=== PATIENT | female | born 1945 | race Caucasian/White ===

== ENCOUNTER → 2018-03-15 | Outpatient (CLI) | payer MEDICARE, BC | LOC: M CLY 10:09 | DX: M16.12 Unilateral primary osteoarthritis, left hip (principal); M25.752 Osteophyte, left hip; M25.552 Pain in left hip | CPT/HCPCS: 73502; G0463 ==

== ENCOUNTER → 2018-11-17 | Outpatient (CLI) | payer MEDICARE, BC ==
[~2018-11-17] MED LIST: CONRAY-43 43% 50ML VIAL (Q9960) As Ordered ONE; LIDOCAINE 1% MDV 20ML VIAL As Ordered ONE; TRIAMCINOLONE ACETONIDE SUSP 40 MG/ML VIAL (J3301) As Ordered ONE
== END ==
LOC: M RADPRO 10:56
PROVIDERS: ATTEND Family Medicine
DX: M25.559 Pain in unspecified hip (principal); Z53.8 Procedure and treatment not carried out for other reasons

== ENCOUNTER → 2019-01-17 | Outpatient (CLI) | payer MEDICARE, BC ==
--- NOTE | 2019-01-18 08:46 | REP ---
Left hip injection The procedure was performed under the direct supervision of Dr. Hester. The benefits and risks including but not limited to pain infection and bleeding and anaphylaxis were explained to the patient and informed consent was obtained. The left femoral neck was localized using fluoroscopic guidance. The skin was prepped and draped in a sterile fashion. 1% lidocaine was used as a local anesthetic. Using fluoroscopic guidance a 22-gauge spinal needle was inserted and advanced to the femoral neck. 0.5 ml of Conray 43 was injected to verify placement. 10 ml of a solution containing 9 ml of 1% Xylocaine and 1 ml of Kenalog 40 mg was injected. The needle was then removed. The patient tolerated the procedure well and there were no immediate complications. Less than six seconds of fluoro time was utilized for this procedure. Reviewed by NOELLE Singletary 01/17/2019 05:22 P Electronically Signed by Broderick Hester MD 01/18/2019 08:37 A
== END ==
LOC: M RADPRO 08:56
PROVIDERS: ATTEND Family Medicine
DX: M25.552 Pain in left hip (principal)
CPT/HCPCS: 20610; 77002; J3301; Q9960

== ENCOUNTER → 2019-12-02 | Outpatient (REF) | payer MEDICARE, BC ==
[2019-12-02 12:13] LABS: BLOOD UREA NITROGEN 12 MG/DL (7-18); CREATININE FOR GFR 0.69 MG/DL (0.55-1.30); GLUCOSE, FASTING 113 MG/DL (70-100)
[2019-12-02 12:14] LABS: CALCIUM LEVEL 9.1 MG/DL (8.8-10.2); CARBON DIOXIDE LEVEL 28 MEQ/L (21-32); CHLORIDE LEVEL 106 MEQ/L (98-107); GLOMERULAR FILTRATION RATE > 60.0 (>39); POTASSIUM SERUM 4.3 MEQ/L (3.5-5.1); SODIUM LEVEL 140 MEQ/L (136-145)
== END ==
LOC: M PLALAB 08:06
PROVIDERS: ATTEND Surgery
DX: C50.912 Malignant neoplasm of unspecified site of left female breast (principal)

== ENCOUNTER → 2019-12-09 | Outpatient (CLI) | payer MEDICARE, BC ==
[~2019-12-09] MED LIST changes: +ACET1TAB55 PO; +ANAS1TAB2 PO; -CONRAY-43 43% 50ML VIAL (Q9960) As Ordered ONE; +DULO1CAP6 PO; +ENOX80IN3 SC; +FOLI0.4T5 PO; +GABA600T4 PO; +HYDR-3719 PO; +HYDR-4517 PO; +IRON65TA2 PO; +JANT5TAB PO; -LIDOCAINE 1% MDV 20ML VIAL As Ordered ONE; +LOVE0.4I2 SC; +METO1TAB32 PO; +NIFE15CA PO; +OXYB5TAB10 PO; +PROAAER10 INH; +PROHANCE 279.3MG/ML 15ML VIAL As Ordered ONE; +SYMB16INH INH; +TIZA2CAP PO; +TRAM50TA2 PO; -TRIAMCINOLONE ACETONIDE SUSP 40 MG/ML VIAL (J3301) As Ordered ONE; +VITA500T40 PO; +WARF-58 PO; +WARF-60 PO
--- NOTE | 2019-12-13 22:57 | REP ---
BILATERAL BREAST MRI STUDY WITHOUT AND WITH IV GADOLINIUM: HISTORY: Malignant neoplasm of the female left breast. Patient is status post right mastectomy for malignancy diagnosed in 2011. Comparison mammography 11/27/2017. Comparison left breast mammography 11/08/2019 and 10/07/2019. Comparison sonography 10/07/2019. Ultrasound-guided needle biopsy 11/08/2019. TECHNIQUE: 3 Tressa MRI imaging was performed with a dedicated breast coil. Axial, coronal, and sagittal T1- and T2-weighted scans were obtained with and without fat saturation in the usual fashion. The study includes dynamically acquired post gadolinium enhanced imaging subtraction imaging. Maximal intensity projection and multiplanar reformation imaging is included as well. The study was interpreted with the aid of [employer], an FDA-approved computer-aided detection (CAD) software program, on a dedicated breast MRI work station. The gadolinium enhancement dose is 11 mL of intravenous ProHance. FINDINGS: Patient status post right mastectomy. There is metallic field susceptibility artifact in and about the sternum from sternotomy wires. There is fibroglandular tissue in the left breast. There is mild background parenchymal enhancement. No axillary adenopathy is appreciated. No evidence of cystic breast disease. There is a metallic field susceptibility artifact along the posterior margin of a spiculated mass-like lesion in the left breast superiorly and medially, 11 mm in diameter. This is consistent with the recently diagnosed malignancy. This demonstrates predominantly plateau-type contrast kinetics. No other suspicious morphologic abnormality is seen on T1- or T2-weighted scans. No other breast mass is observed. No other area of enhancement and washout is seen to suggest additional malignant focus in the left breast. No chest wall disease is seen on either side. IMPRESSION: BI-RADS category 6, known left breast malignant findings. No other suspicious abnormality. Patient status post right mastectomy. Electronically Signed by Broderick Hester MD 12/14/2019 02:54 P
== END ==
LOC: M RAD 14:17
PROVIDERS: ATTEND Surgery
DX: C50.912 Malignant neoplasm of unspecified site of left female breast (principal); Z90.11 Acquired absence of right breast and nipple
CPT/HCPCS: A9576; C8908

== ENCOUNTER → 2019-12-21 | Outpatient (CLI) | payer MEDICARE, BC ==
[~2019-12-21] MED LIST changes: -ANAS1TAB2 PO; +FOLI0.4T PO; -FOLI0.4T5 PO; -HYDR-3719 PO; -PROHANCE 279.3MG/ML 15ML VIAL As Ordered ONE
--- NOTE | 2019-12-21 15:05 | REP ---
Clinical: Follow-up pulmonary nodule. Technique: Axial noncontrast images from the thoracic inlet to the upper abdomen with coronal and sagittal re-formations. Comparison: Outside examinations dated 05/13/2019, 09/23/2018. Findings: Chronic relatively stable scattered scarring minimal chronic pleural changes and mild/moderate bronchiectasis are essentially unchanged when compared to prior examination. The small concerning 3 mm nodule in the right lower lobe on image 58 of examination dated 05/13/2019 has resolved. However, there is a subtle new 5.5 mm part solid density in the posterior periphery right lower lobe (image 78) as well as a new 11 mm nodule in the right middle lobe (image 68). The mediastinum demonstrates stable atherosclerotic changes to the thoracic aorta and coronary arteries along with mild cardiomegaly and evidence for aortic valve repair. No pericardial effusion. No significant adenopathy. Surrounding musculoskeletal structures demonstrate postsurgical changes and degenerative changes. Impression: 1. Chronic pleuroparenchymal changes similar to prior examination. Previously noted concerning 3 mm nodule in the right lower lobe has resolved. 2. New right lower lobe part solid nodule and right middle lobe solid nodule are identified and warrant short-term 3 - 6 month follow-up evaluation. Electronically Signed by Semaj Milligan MD 12/21/2019 02:56 P
== END ==
LOC: M RAD 14:22
PROVIDERS: ATTEND Surgery
DX: R91.1 Solitary pulmonary nodule (principal)
CPT/HCPCS: 71250; G0463

== ENCOUNTER → 2020-03-19 | Outpatient (CLI) | payer MEDICARE, BC ==
--- NOTE | 2020-03-28 15:11 | REP ---
PET/CT HISTORY: Staging right upper outer quadrant breast malignancy. Comparison MRI study of the breast December 09, 2019. Comparison CT study of the chest December 21, 2019. The patient is status post prior right mastectomy. Recent diagnosis left breast malignancy. TECHNIQUE: 55 minutes following the intravenous injection of an 8.16 millicurie dose of F18 FDG, three dimensional PET scanning is acquired from the skull base to the proximal thighs. PET/CT FINDINGS: Head and neck soft tissues are unremarkable. No supraclavicular adenopathy or hypermetabolic uptake is seen. Patient is status post multilevel thoracic spine fusion surgery with hardware placement. There is a small focus of heterotopic bone formation in the posterior extrathoracic paraspinal soft tissues on the right which shows mildly increased uptake. This does not have a suspicious appearance. There is no evidence of hypermetabolic pleural, parenchymal, hilar, or mediastinal aaron uptake in the chest. No internal mammary aaron uptake is seen. There is a somewhat linear area of mildly increased uptake in the left breast soft tissues medially in this patient with known left breast malignancy. Maximum standard uptake value is only 1.98 in this area. No frankly hypermetabolic breast parenchymal uptake. No axillary or internal mammary hypermetabolic uptake is seen. In the abdomen and pelvis, there is normal distribution of fluorodeoxyglucose. Lumbar spine fusion hardware is noted as well. No abnormal abdominal or pelvic hypermetabolic uptake is seen. The gallbladder is surgically absent. The recently identified 11 mm nodule in the right middle lobe is improved, nearly resolved, on accompanying CT study. No abnormal hypermetabolic uptake is seen here. No other abnormal pulmonary parenchymal uptake is observed. IMPRESSION: Mildly increased uptake in the left breast consistent with the history of known breast malignancy. Not frankly hypermetabolic. No other abnormal hypermetabolic uptake is seen. No abnormal skeletal uptake. MTDD
== END ==
LOC: M PLARAD 13:32
PROVIDERS: ATTEND Internal Medicine Pulmonary Disease
DX: C50.411 Malignant neoplasm of upper-outer quadrant of right female breast (principal); Z90.11 Acquired absence of right breast and nipple
CPT/HCPCS: 78815; A9552

== ENCOUNTER → 2020-04-03 | Outpatient (REF) | payer MEDICARE, BC ==
[2020-04-03 16:13] LABS: BASO % 0.5 % (0.0-1.0); EOS # 0.2 10^3/uL (0.0-0.5); EOS % 3.3 % (0.0-3.0); HEMATOCRIT 38.4 % (36.0-47.0); HEMOGLOBIN 12.6 g/dl (12.0-15.5); LYMPH % 16.8 % (24.0-44.0); MEAN CORPUSCULAR HEMOGLOBIN 33.9 pg (27.0-33.0); MEAN CORPUSCULAR HGB CONC 32.8 g/dl (32.0-36.5); MEAN CORPUSCULAR VOLUME 103.2 fl (80.0-96.0); MONO # 0.6 10^3/uL (0.0-0.8); MONO % 10.9 % (0.0-5.0); NEUTROPHILS # 3.9 10^3/uL (1.5-8.5); NEUTROPHILS % 68.3 % (36.0-66.0); PLATELET COUNT, AUTOMATED 227 10^3/uL (150-450); RED BLOOD COUNT 3.72 10^6/uL (4.00-5.40); WHITE BLOOD COUNT 5.8 10^3/uL (4.0-10.0)
[2020-04-03 16:43] LABS: ALBUMIN 3.8 GM/DL (3.2-5.2); ALT/SGPT 22 U/L (12-78); BILIRUBIN,TOTAL 0.4 MG/DL (0.2-1.0); BLOOD UREA NITROGEN 12 MG/DL (7-18); CARBON DIOXIDE LEVEL 32 MEQ/L (21-32); CHLORIDE LEVEL 102 MEQ/L (98-107); CREATININE FOR GFR 0.68 MG/DL (0.55-1.30); GLOMERULAR FILTRATION RATE > 60.0 (>39); GLUCOSE, FASTING 98 MG/DL (70-100); POTASSIUM SERUM 4.3 MEQ/L (3.5-5.1); SODIUM LEVEL 138 MEQ/L (136-145); TOTAL PROTEIN 6.7 GM/DL (6.4-8.2)
== END ==
LOC: M SFHCCLAY 11:07
PROVIDERS: ATTEND Nurse Practitioner Family
DX: F32.9 Major depressive disorder, single episode, unspecified (principal); E78.2 Mixed hyperlipidemia; C50.919 Malignant neoplasm of unspecified site of unspecified female breast

== ENCOUNTER → 2020-04-12 | Outpatient (CLI) | payer MEDICARE, BC | LOC: M LABSMTC 09:46 | PROVIDERS: ATTEND Anesthesiology | DX: Z11.59 Encounter for screening for other viral diseases (principal) | CPT/HCPCS: C9803; U0003 ==

== ENCOUNTER 2020-04-17 06:35 | Inpatient (IN) | payer MEDICARE, BC ==
[~2020-04-17] VITALS: Ht 162.6 cm; Wt 60.3 kg
[~2020-04-17 06:35] MED LIST changes: -ACET1TAB55 PO; -ENOX80IN3 SC; -FOLI0.4T PO; -IRON65TA2 PO; -JANT5TAB PO; +LIDOCAINE 1% MDV 20ML VIAL SQ PRN; -LOVE0.4I2 SC; +LR 1,000 ML IV ONE; -NIFE15CA PO; -TRAM50TA2 PO; -VITA500T40 PO; +ceFAZolin SOD 2 GM in IV 1 EA IV ONE
[2020-04-17 07:48] LABS: INR 1.24; PROTHROMBIN TIME 15.9 SECONDS (12.5-14.3)
[2020-04-17] MEDS ORDERED: LIDOCAINE 1% SDV 30ML VIAL As Ordered ONE (08:32)
[2020-04-17] MEDS ORDERED: BUPIVACAINE HCL 0.25% 30ML VIAL As Ordered ONE (08:32)
[2020-04-17] MEDS ORDERED: ONDANSETRON 4MG/2ML VIAL As Ordered ONE (08:45)
[2020-04-17] MEDS ORDERED: propofoL 200 MG/20 ML VIAL As Ordered ONE (08:45)
[2020-04-17] MEDS ORDERED: LIDOCAINE 2% 100MG/5ML SDV (FOR ANES.) As Ordered ONE (08:45)
[2020-04-17] MEDS ORDERED: METOCLOPRAMIDE INJ 10MG/2ML VIAL (J2765 PER 1) As Ordered ONE (08:45)
[2020-04-17] MEDS ORDERED: fentaNYL 100 MCG/2 ML INJECTION (J3010) As Ordered ONE (08:46)
[2020-04-17] MEDS ORDERED: MIDAZOLAM INJ 2MG/2ML VIAL (J2250 PER 1MG) As Ordered ONE (08:46)
[2020-04-17] MEDS: HEPARIN SOD (PORCINE) 5000UNITS/ML 1ML VIAL/SYRINGE SQ ONE ×2 (09:06→09:28)
[2020-04-17] MEDS ORDERED: ENOX80IN3 SC (09:29)
[2020-04-17] MEDS ORDERED: ROCURONIUM BROMIDE 50 MG/5 ML VIAL As Ordered ONE (10:00)
[2020-04-17] MEDS ORDERED: HYDROmorphone HCL 2 MG/ML 1ML VIAL (J1170) As Ordered ONE (10:43)
[2020-04-17] MEDS ORDERED: BUPIVACAINE LIPOSOME/PF 1.3% 20ML VIAL (13.3MG/ML)(EXPAREL)(C9290 PER1MG) As Ordered ONE (11:46)
[2020-04-17] MEDS ORDERED: dexameTHASONE 4 MG/ML 1ML VIAL (J1100 PER 1MG) As Ordered ONE (13:08)
[2020-04-17] MEDS ORDERED: ACETAMINOPHEN 1000MG 100ML IV BTL (OFIRMEV) (J0131 PER 10MG) As Ordered ONE (13:08)
[2020-04-17] MEDS ORDERED: MORPHINE 2 MG/ML 1ML VIAL (J2270) IV PRN (13:15)
[2020-04-17] MEDS ORDERED: fentaNYL 100 MCG/2 ML INJECTION (J3010) IV PRN (13:30)
[2020-04-17] MEDS ORDERED: oxyCODONE 5MG TAB PO PRN (13:30)
[2020-04-17] MEDS ORDERED: ONDANSETRON 4MG/2ML VIAL IV PRN (13:30)
[2020-04-17] MEDS ORDERED: LR 1,000 ML IV SCH (13:30)
[2020-04-17 15:00] VITALS: BP 147/86
[2020-04-17 15:30] VITALS: BP 142/81
[2020-04-17 15:52] LABS: HEMATOCRIT 36.7 % (36.0-47.0); HEMOGLOBIN 12.1 g/dl (12.0-15.5); MEAN CORPUSCULAR HEMOGLOBIN 34.4 pg (27.0-33.0); MEAN CORPUSCULAR VOLUME 104.3 fl (80.0-96.0); PLATELET COUNT, AUTOMATED 177 10^3/uL (150-450); RED BLOOD COUNT 3.52 10^6/uL (4.00-5.40); WHITE BLOOD COUNT 7.7 10^3/uL (4.0-10.0)
[2020-04-17] MEDS ORDERED: ALBUTEROL 90 MCG/ACT 8GM HFA INHALER INH PRN (16:00)
[2020-04-17 16:30] VITALS: BP 131/83
[2020-04-17 16:41] LABS: BLOOD UREA NITROGEN 12 MG/DL (7-18); CALCIUM LEVEL 8.2 MG/DL (8.8-10.2); CARBON DIOXIDE LEVEL 27 MEQ/L (21-32); CHLORIDE LEVEL 108 MEQ/L (98-107); CREATININE FOR GFR 0.66 MG/DL (0.55-1.30); GLOMERULAR FILTRATION RATE > 60.0 (>39); GLUCOSE, FASTING 152 MG/DL (70-100); SODIUM LEVEL 141 MEQ/L (136-145)
[2020-04-17 16:44] LABS: INR 1.12; PROTHROMBIN TIME 14.6 SECONDS (12.5-14.3)
[2020-04-17] MEDS: GABAPENTIN 300 MG CAP PO SCH ×2 (16:50→21:15)
--- NOTE | 2020-04-17 16:56 | HPEPDOC ---
General Date of Admission Date of Service: Apr 17, 2020 Primary Care Physician: ONUR FERNÁNDEZ DO Attending Physician: TOSHIA REYES MD Chief Complaint The patient is a 74-year-old female admitted with a reason for visit of Left Breast Cancer. History of Present Illness History of present illness: Mrs. Sams is a 74-year-old female patient who just had her left-sided mastectomy and is seen in the recovery room post surgery. She is getting her mastectomy done as she was diagnosed with left-sided breast cancer down in and spring. She denies having any pain, nausea, vomiting. She was in recovery after the surgery she was little drowsy. Past medical history: Dyslipidemia Atrial fibrillation on Coumadin at home Osteoporosis Allergic rhinitis History of right breast cancer status post right mastectomy next line Aortic valve replacement with bioprosthetic valve History of congenital heart defect JESSICA Fibromyalgia Depression Fracture ribs is on the left side from the fall Asthma Surgical history: Bunions of feet 2008/2009. Laparoscopic hysterectomy 2001. Status post cholecystectomy 1970 Aortic valve, aneurysm in 2003 Back surgery in 2010 Right breast mastectomy in 2011 Carpal tunnel release in 2018 Social history: Former smoker quit more than 10 years ago, smoked for 15 years. She reports drinking alcohol a glass of wine occasionally . Denies any recreational drug use. Family History: Father at 80 yrs of bone cancer. Mother: 80 years, COPD. Siblings alive, 2 brothers and with congenital heart surgeries. She has 3 kids. And and are doing well Allergies: To adhesive tape: Rash Review of systems Constitutional: Denies having fever, chills, night sweats, weight loss, headaches. Eyes: Denies any blurry vision or double vision. ENT: Denies any dysphagia, odynophagia, ear discharge. Cardiovascular: Denies any chest pain or palpitations. Respiratory: Reports having shortness of breath at baseline. She is not short of breath now. Gastrointestinal (GI): Denies any nausea or vomiting. Genitourinary: Denies dysuria, hematuria. Musculoskeletal: Denies any muscle aches and pains. Skin: Denies any rashes or ulcers. Hematology/Oncology: Denies any easy bleeding or bruising. Endocrine: Denies cold intolerance, heat intolerance, polydipsia, polyphagia, polyuria All other review of systems is negative. PHYSICAL EXAMINATION: Vital Signs: Temperature: 98.5 F Pulse: 104 RR: 18 BP: 147/86 mmHg please Oxygen saturation %: 98 on 2 L [id number] cannula. General: Patient is awake, alert, oriented times three, laying in bed , no a pparent distress. Eyes: Conjunctiva clear, pupils equal round and reactive to light and accommodation. ENT: Hearing Bilateral normal. No nasal deviation, oropharynx clear Mallampati score of 3. Cardiovascular: S1, S2, normal rhythm, systolic grade 2 murmur, no carotid or abdominal bruits. Respiratory: Chest is clear to auscultation bilaterally. No rhonchi, wheezes or rubs. Abdomen: Soft, bowel sounds positive, no bruits. Tenderness on palpation of her lower abdomen noted bruises from the Lovenox injections. Liver edge, spleen, kidney not felt, no masses. Extremities: No clubbing or cyanosis. No edema, no tenderness. Central nervous system (SU[employer]): Awake, alert and fully oriented. Cranial nerves III-XII grossly intact. Motor: Strength normal, patient moves all extremities. Impression: Mrs. Sams is a 74-year-old female patient who is seen in the recovery room after her surgery of left mastectomy. She is being admitted overnight to be observed post surgery. She denies having any symptoms, or in any sort of pain. Plan: Breast carcinoma status post left mastectomy: Will monitor her overnight. Atrial fibrillation [patient takes Coumadin at home]: Patient was switched to Lovenox injections for the surgery her last dose of Lovenox was last night at [address] Beckett and further recommendations. Patient got a dose of heparin prior to the surgery. DVT prophylaxis: TEDs and sequentials for now Home Medications Scheduled Albuterol Sulfate (Proair Hfa) 8.5 Gm Hfa.aer.ad, 2 PUFF INH PRN, (Reported) Budesonide/Formoterol (Symbicort 160-4.5 Mcg Inhaler) 6 Gm Hfa.aer.ad, 2 PUFF INH BID, (Reported) Cyanocobalamin (Vitamin B-12) (Vitamin B-12) 500 Mcg Tablet, 500 MCG PO DAILY Duloxetine Hcl (Duloxetine HCl) 60 Mg Capsule.dr, 60 MG PO QHS, (Reported) Enoxaparin Sodium (Lovenox) 60 Mg/0.6 Ml Syringe, 60 MG SC Q12H Ferrous Sulfate (Iron) 325 Mg Tablet, 1 TAB PO DAILY Folic Acid (Folic Acid) 0.4 Mg Tablet, 1 TAB PO DAILY Gabapentin (Gabapentin) 600 Mg Tablet, 600 MG PO Q8H, (Reported) Metoprolol Succinate (Metoprolol Succinate) 25 Mg Tab.er.24h, 12.5 MG PO DAILY, (Reported) Oxybutynin Chloride (Oxybutynin Chloride) 5 Mg Tablet, 5 MG PO DAILY, (Reported) Tizanidine HCl (Tizanidine HCl) 2 Mg Capsule, 2 MG PO QHS, (Reported) Warfarin Sodium (Jantoven) 5 Mg Tablet, 5 MG PO DAILY@17 Scheduled PRN Acetaminophen (Acetaminophen) 325 Mg Tablet, 650 MG PO Q6HP PRN for PAIN LEVEL 1-4 Tramadol HCl (Tramadol HCl) 50 Mg Tablet, 50 MG PO Q6HP PRN for MODERATE PAIN (PS 5-7) Allergies Coded Allergies: TAPE (Verified Allergy, Intermediate, rash, 04/10/20) prefers paper tape if possible A-FIB/CHADSVASC A-FIB History Current/History of A-Fib/PAF?: Yes Current PO Anticoag Therapy: Yes Vital Signs Vital Signs Date Time Temp Pulse Resp B/P (MAP) Pulse Ox O2 Delivery O2 Flow Rate FiO2 04/17/20 15:00 98.5 104 18 147/86 (106) 96 Room Air 04/17/20 14:30 2 Laboratory Data Labs 24H Laboratory Tests 2 04/17/20 06:53: Prothrombin Time 15.9H, Prothromb Time International Ratio 1.24 Plan / VTE VTE Prophylaxis Ordered?: Yes VTE Exclusion Mechanical Proph: Other GME ATTESTATION GME ATTESTATION My faculty preceptor for this patient encounter was physically present during the encounter and was fully available. All aspects of the patient interview, examination, medical decision making process, and medical care plan development were reviewed and approved by the faculty preceptor. The faculty preceptor is aware and concurs with the plan as stated in the body of this note and will attest to such by his/her cosignature. ATTENDING NOTE Patient was seen and examined by me personally with the residents/ students. I agree with the above assessment and plan Rowan Escobar MD Apr 17, 2020 16:01 TOSHIA REYES MD Apr 24, 2020 12:32
[2020-04-17 17:30] VITALS: BP 132/86
--- NOTE | 2020-04-17 17:49 | REP ---
INDICATION: LEFT BREAST CA. COMPARISON: None. TECHNIQUE/RADIOTRACER AND DOSE: This procedure was performed by Mercedes Raphael [facility], under the direct supervision of Dr. Richter. Images were reviewed with Dr. Richter prior to dictation. The risks and benefits of the procedure were explained to the patient and informed consent was obtained both orally and written. Directly prior to the start of the procedure, a formal timeout was completed in the exam room. Using topical anesthetic and sterile technique 1.025 mCi of technetium 99m filtered sulfur colloid was injected subdermally in 8 fractionated periareolar injections. FINDINGS: Images obtained 1 hour after injection show 2 left axilla foci. IMPRESSION: Two left axillary foci. <Electronically signed by Mercedes Raphael > 04/17/20 1124 <Electronically signed by Kam Richter > 04/17/20 [id number]
[2020-04-17] MEDS: SYMBICORT 160/4.5MCG INHALER 6GM INH SCH (19:18)
[2020-04-17] MEDS: DULoxetine 30 MG CAP (CYMBALTA) PO SCH (21:15)
[2020-04-17] MEDS: traMADol 50 MG TAB PO PRN (21:16)
[2020-04-17 22:00] VITALS: BP 98/61
[2020-04-18 02:00] VITALS: BP 99/56
[2020-04-18] MEDS: ACETAMINOPHEN TAB 650MG DOSE (2X325MG) PO PRN ×3 (02:01→21:27)
[2020-04-18 05:29] LABS: HEMATOCRIT 31.5 % (36.0-47.0); HEMOGLOBIN 10.4 g/dl (12.0-15.5); MEAN CORPUSCULAR HEMOGLOBIN 34.9 pg (27.0-33.0); MEAN CORPUSCULAR VOLUME 105.7 fl (80.0-96.0); PLATELET COUNT, AUTOMATED 184 10^3/uL (150-450); RED BLOOD COUNT 2.98 10^6/uL (4.00-5.40); WHITE BLOOD COUNT 8.1 10^3/uL (4.0-10.0)
[2020-04-18] MEDS: traMADol 50 MG TAB PO PRN ×3 (05:44→21:27)
[2020-04-18] MEDS: GABAPENTIN 300 MG CAP PO SCH ×3 (05:44→21:26)
[2020-04-18 05:54] LABS: BLOOD UREA NITROGEN 13 MG/DL (7-18); CALCIUM LEVEL 7.9 MG/DL (8.8-10.2); CARBON DIOXIDE LEVEL 30 MEQ/L (21-32); CHLORIDE LEVEL 106 MEQ/L (98-107); CREATININE FOR GFR 0.69 MG/DL (0.55-1.30); GLOMERULAR FILTRATION RATE > 60.0 (>39); GLUCOSE, FASTING 124 MG/DL (70-100); MAGNESIUM LEVEL 2.2 MG/DL (1.8-2.4); POTASSIUM SERUM 4.2 MEQ/L (3.5-5.1); SODIUM LEVEL 140 MEQ/L (136-145)
[2020-04-18 06:00] VITALS: BP 96/59
[2020-04-18 06:54] VITALS: BP 100/60
[2020-04-18] MEDS: SYMBICORT 160/4.5MCG INHALER 6GM INH SCH ×2 (07:29→19:44)
--- NOTE | 2020-04-18 07:59 | IPNPDOC ---
Subjective General Date Seen: Apr 18, 2020 Subject Chief Complaint/History The patient is a 74-year-old female with numerous comorbidities, on chronic anticoagulation which was stopped prior to surgery and breached with Lovenox, admitted after her left breast mastectomy with left sentinel lymph node biopsy done for diagnosis of left breast cancer . Surgery was done on 04/17/20. Patient developed postop hematoma. Hematoma is stable right now. Drain output was over 300 cc since the surgery and its sterile sanguinous. Compression dressing was reinforced last night and this morning. Mammogram and was noted to trend down. Patient was able to void post surgery. She does not have nausea or vomiting. She was able to ambulate into the bathroom. She does have some pain as expected postsurgically. Current Medications Current Medications Current Medications Medications (Trade) Dose Ordered Sig/Carol Route PRN Reason Start Time Stop Time Status Last Admin Dose Admin Acetaminophen (Tylenol Tab) 650 mg Q6HP PRN PO PAIN LEVEL 1-4 04/17/20 13:15 04/18/20 02:01 Albuterol Sulfate (Proventil, Ventolin Hfa) 2 puff Q4HP PRN INH SOB/WHEEZING 04/17/20 16:00 Budesonide/ Formoterol Fumarate (Symbicort 160/ 4.5mcg) 2 puff RBID INH 04/17/20 20:00 04/18/20 07:29 Duloxetine HCl (Cymbalta) 60 mg QHS PO 04/17/20 21:00 04/17/20 21:15 Fentanyl Citrate (Sublimaze) 25 mcg Q5MP PRN IV PAIN LEVEL 5-10 04/17/20 13:30 04/17/20 14:30 DC Gabapentin (Neurontin) 600 mg Q8H PO 04/17/20 14:00 04/18/20 05:44 Lactated Ringer's 1,000 ml @ 100 mls/hr Q10H IV 04/17/20 13:30 04/17/20 14:30 DC Lidocaine HCl (LIDOCAINE 1% MDV 20ml) 0.1 ml ONCE PRN SQ DISCOMFORT BEFORE IV START 04/17/20 06:00 04/17/20 13:18 DC Metoprolol Succinate (TopROL XL) 12.5 mg DAILY PO 04/18/20 09:00 Morphine Sulfate (Morphine Sulfate Inj) 2 mg Q3H PRN IV SEVERE PAIN (PS 8-10) 04/17/20 13:15 Ondansetron HCl (ZOFRAN INJection) 4 mg Q4HP PRN IV NAUSEA OR VOMITING 04/17/20 13:30 04/17/20 14:30 DC Oxybutynin Chloride (Ditropan) 5 mg DAILY PO 04/18/20 09:00 Oxycodone HCl (Roxicodone, Oxyir) 5 mg ASDIRECTED PRN PO PAIN LEVEL 1-4 04/17/20 13:30 04/17/20 14:30 DC Tramadol HCl (Ultram) 50 mg Q6HP PRN PO MODERATE PAIN (PS 5-7) 04/17/20 13:15 04/18/20 05:44 Allergies Coded Allergies: TAPE (Verified Allergy, Intermediate, rash, 04/10/20) prefers paper tape if possible Objective Physical Examination Examination GENERAL APPEARANCE:Patient seen, laying in bed, awake, alert, and oriented. Comfortable, in no acute distress. BREAST: Right breast is surgically absent. Left breast mastectomy flaps are viable but there is significant ecchymosis throughout the entire flap. There is superior and lateral hematoma present. This is soft. Incision is well approximated. There is no drainage through the incision. 2 SAHRA drains are in the lateral left chest with sanguinous output. Those drains were stripped this morning by me. Jose F wrap was replaced to continue compression of the area. HEENT: Normocephalic, atraumatic. NECK: Supple LUNGS: Breathing comfortably on room air HEART: Atrial fibrillation . No RVR ABDOMEN: Abdomen is soft EXTREMITIES: Good range of motion LEFT upper extremity Vital Signs Vital Signs Date Time Temp Pulse Resp B/P (MAP) Pulse Ox O2 Delivery O2 Flow Rate FiO2 04/18/20 06:54 100/60 (73) 04/18/20 06:18 18 04/18/20 06:00 97.9 105 96 NIPPV (BIPAP/CPAP) 2.0 I&Os I&O- Last 24 Hours up to 6 AM 04/18/20 06:00 Intake Total 1920 ml Output Total 1135 ml Balance 785 ml Laboratory Data Labs 24H Laboratory Tests 2 04/17/20 15:41: Nucleated Red Blood Cells % (auto) 0.0, Anion Gap 6L, Glomerular Filtration Rate > 60.0, Calcium Level 8.2L 04/17/20 16:17: Prothrombin Time 14.6H, Prothromb Time International Ratio 1.12 04/18/20 05:07: Nucleated Red Blood Cells % (auto) 0.0, Anion Gap 4L, Glomerular Filtration Rate > 60.0, Calcium Level 7.9L, Magnesium Level 2.2 CBC/BMP Laboratory Tests 04/17/20 15:41 04/18/20 05:07 Impression 74 year old lady with numerous comorbidities, on chronic anticoagulation stopped prior to surgery, status post left breast simple mastectomy without wojciech nstruction and left sentinel lymph node biopsy done 04/17/20. Patient developed postop hematoma in the superior lateral aspect of her mastectomy flap. She also has extensive ecchymosis over the entire left chest flap. Drain output is still significant. -Continue compression with Jose F wrap -Hold anticoagulation - inpatient admission - Hospitalist team consulted for med management, I greatly appreciate the input in taking care of Ms. Sams - continue IS - OOB - stop IVF, resume prehospital diet - will monitor hematoma, stable for now Plan / VTE VTE Prophylaxis Ordered?: Yes VTE Exclusion Pharmacological: Active Bleeding (L chest wall hematoma) VAUGHN CHAVES DO Apr 18, 2020 07:59
[2020-04-18] MEDS: METOPROLOL SUCC *XL* 12.5MG PER 1/2 TAB (TopROL *XL*) PO SCH (09:00)
[2020-04-18] MEDS ORDERED: FLUBLOK(EGG FREE)(QUAD)INFLUENZA VACC 0.5ML SYRINGE 18YRS & OLDER IM ONE (09:00)
[2020-04-18] MEDS: oxyBUTYnin 5 MG TAB PO SCH (09:12)
[2020-04-18 10:00] VITALS: BP 100/63
[2020-04-18 14:00] VITALS: BP 104/76
--- NOTE | 2020-04-18 17:38 | IPNPDOC ---
Text Note Date of Service The patient was seen on 04/18/20. NOTE Subjective: 74-year-old female patient who was admitted yesterday to the hospital after having a elective left-sided mastectomy. She had an hematoma during the surgery and was admitted to the hospital for further management and monitoring. Patient seen at bedside on 04/18/2020. Patient denies having any acute events overnight. She reports having a good night sleep. She denies having any nausea, vomiting, chest pain, shortness of breath, abdominal pain, diarrhea, dysuria. Her labs were in stable. Patient reports using her CPAP overnight. Objective: General: Patient is awake, alert, oriented times three, sitting in bed , no apparent distress. Cardiovascular: S1, S2, systolic grade 2 murmur heard in the second left i ntercostal space, no carotid heard. Respiratory: Chest is clear to auscultation bilaterally, No rhonchi, wheezes or rubs. Patient has a janna bandage wrapped around her chest, noted a bruise about her left clavicle and in the epigastric region. Patient reports she noticed ext ensive bruise all over her left breast when the janna bandage was taken out earlier by Dr. Beckett. Abdomen: Soft, bowel sounds positive, no bruits. Her tenderness in the lower abdomen has improved, she still has the bruises from Lovenox injections. Extremities: No clubbing or cyanosis. No edema, no tenderness. Central nervous system (FOOD [employer]EVERAGE LEAD): Awake, alert and fully oriented. Assessment: Mrs. Sams is a 74-year-old female patient who was admitted to the hospital after a elective left mastectomy surgery. She had a hematoma from after the surgery and was admitted to the hospital for further management and monitoring. She has a history of A. fib and was on anticoagulation Coumadin at home and was bridged with Lovenox prior to the surgery. Plan: Breast carcinoma status post left mastectomy: Will continue to monitor her. She developed a hematoma postsurgery and was having a big bruise on her left breast region extending from clavicle to the epigastric area. Will follow vascular surgeon recommendations. Atrial fibrillation(on Coumadin at home): Patient was switched to Lovenox for surgery and her last dose of Lovenox was on 04/16/2020. She got a dose of heparin on the day of surgery(04/17/2020) Patient had an complication had a hematoma from surgery in her chest wall, as a result her anticoagulation is on hold. Patient's risk of stroke is 2.9% per year. Patient was made aware of her risks and benefits of holding her anticoagulation. Will restart her anticoagulation based on the recommendations of Dr. Beckett and patient's improvement. DVT prophylaxis: Teds and sequentials. VS,Fishbone, I+O VS, Fishbone, I+O Laboratory Tests 04/17/20 15:41 04/18/20 05:07 Vital Signs Date Time Temp Pulse Resp B/P (MAP) Pulse Ox O2 Delivery O2 Flow Rate FiO2 04/18/20 10:00 99.5 106 17 100/63 (75) 95 NIPPV (BIPAP/CPAP) 2.0 I&O- Last 24 Hours up to 6 AM 04/18/20 06:00 Intake Total 1920 ml Output Total 1135 ml Balance 785 ml GME ATTESTATION GME ATTESTATION My faculty preceptor for this patient encounter was physically present during the encounter and was fully available. All aspects of the patient interview, examination, medical decision making process, and medical care plan development were reviewed and approved by the faculty preceptor. The faculty preceptor is aware and concurs with the plan as stated in the body of this note and will attest to such by his/her cosignature. ATTENDING NOTE Patient was seen and examined by me personally with the residents/ students. I agree with the above assessment and plan Rowan Escobar MD Apr 18, 2020 11:29 TOSHIA REYES MD Apr 24, 2020 12:44
[2020-04-18] MEDS: DULoxetine 30 MG CAP (CYMBALTA) PO SCH (21:26)
[2020-04-18] MEDS: RAMELTEON 8 MG TAB (ROZEREM) PO PRN (21:27)
[2020-04-18 22:00] VITALS: BP 102/71
[2020-04-19] MEDS: traMADol 50 MG TAB PO PRN ×3 (03:47→22:34)
[2020-04-19] MEDS: ACETAMINOPHEN TAB 650MG DOSE (2X325MG) PO PRN (03:47)
[2020-04-19] MEDS: GABAPENTIN 300 MG CAP PO SCH ×3 (05:34→21:00)
[2020-04-19 06:00] VITALS: BP 107/71
[2020-04-19 06:07] LABS: HEMATOCRIT 27.7 % (36.0-47.0); HEMOGLOBIN 8.8 g/dl (12.0-15.5); MEAN CORPUSCULAR HEMOGLOBIN 34.8 pg (27.0-33.0); MEAN CORPUSCULAR HGB CONC 31.8 g/dl (32.0-36.5); MEAN CORPUSCULAR VOLUME 109.5 fl (80.0-96.0); PLATELET COUNT, AUTOMATED 151 10^3/uL (150-450); RED BLOOD COUNT 2.53 10^6/uL (4.00-5.40); WHITE BLOOD COUNT 6.7 10^3/uL (4.0-10.0)
[2020-04-19 06:19] LABS: INR 0.96
[2020-04-19 06:39] LABS: BLOOD UREA NITROGEN 11 MG/DL (7-18); CALCIUM LEVEL 7.8 MG/DL (8.8-10.2); CARBON DIOXIDE LEVEL 30 MEQ/L (21-32); CHLORIDE LEVEL 108 MEQ/L (98-107); CREATININE FOR GFR 0.54 MG/DL (0.55-1.30); GLOMERULAR FILTRATION RATE > 60.0 (>39); GLUCOSE, FASTING 102 MG/DL (70-100); POTASSIUM SERUM 4.3 MEQ/L (3.5-5.1); SODIUM LEVEL 142 MEQ/L (136-145)
--- NOTE | 2020-04-19 06:51 | IPNPDOC ---
Subjective General Date Seen: Apr 19, 2020 Subject Chief Complaint/History The patient is a 74-year-old female, with numerous comorbidities, on chronic anticoagulation, admitted postop after left mastectomy and left sentinel lymph node biopsy done on 04/17/2020 for diagnosis of left breast cancer. Patient developed postoperative hematoma despite the Jose F wrap and holding her anticoagulation. Her last dose of Lovenox was 04/16/2020. She did not get anticoagulation on day of surgery. She remains stable. Her hemoglobin is trending down. Today is 8.8. Ecchymosis is tracking down with gravity. Drain output decreased. Patient is doing well from that pain following review. She ambulates. She tolerates food. Current Medications Current Medications Current Medications Medications (Trade) Dose Ordered Sig/Carol Route PRN Reason Start Time Stop Time Status Last Admin Dose Admin Acetaminophen (Tylenol Tab) 650 mg Q6HP PRN PO PAIN LEVEL 1-4 04/17/20 13:15 04/19/20 03:47 Albuterol Sulfate (Proventil, Ventolin Hfa) 2 puff Q4HP PRN INH SOB/WHEEZING 04/17/20 16:00 Budesonide/ Formoterol Fumarate (Symbicort 160/ 4.5mcg) 2 puff RBID INH 04/17/20 20:00 04/18/20 19:44 Cyanocobalamin (Vitamin B12) 500 mcg DAILY PO 04/19/20 09:00 UNV Duloxetine HCl (Cymbalta) 60 mg QHS PO 04/17/20 21:00 04/18/20 21:26 Fentanyl Citrate (Sublimaze) 25 mcg Q5MP PRN IV PAIN LEVEL 5-10 04/17/20 13:30 04/17/20 14:30 DC Gabapentin (Neurontin) 600 mg Q8H PO 04/17/20 14:00 04/19/20 05:34 Iron (Niferex) 150 mg DAILY PO 04/19/20 09:00 UNV Lactated Ringer's 1,000 ml @ 100 mls/hr Q10H IV 04/17/20 13:30 04/17/20 14:30 DC Lidocaine HCl (LIDOCAINE 1% MDV 20ml) 0.1 ml ONCE PRN SQ DISCOMFORT BEFORE IV START 04/17/20 06:00 04/17/20 13:18 DC Metoprolol Succinate (TopROL XL) 12.5 mg DAILY PO 04/18/20 09:00 Morphine Sulfate (Morphine Sulfate Inj) 2 mg Q3H PRN IV SEVERE PAIN (PS 8-10) 04/17/20 13:15 Ondansetron HCl (ZOFRAN INJection) 4 mg Q4HP PRN IV NAUSEA OR VOMITING 04/17/20 13:30 04/17/20 14:30 DC Oxybutynin Chloride (Ditropan) 5 mg DAILY PO 04/18/20 09:00 04/18/20 09:12 Oxycodone HCl (Roxicodone, Oxyir) 5 mg ASDIRECTED PRN PO PAIN LEVEL 1-4 04/17/20 13:30 04/17/20 14:30 DC Ramelteon (Rozerem) 8 mg QHS PRN PO INSOMNIA 04/18/20 20:30 04/18/20 21:27 Tramadol HCl (Ultram) 50 mg Q6HP PRN PO MODERATE PAIN (PS 5-7) 04/17/20 13:15 04/19/20 03:47 Allergies Coded Allergies: TAPE (Verified Allergy, Intermediate, rash, 04/10/20) prefers paper tape if possible Objective Physical Examination Examination GENERAL APPEARANCE:Patient seen, laying in bed, awake, alert, and oriented. SKIN: Left chest ecchymosis BREAST: Right breast is surgically absent. Left mastectomy flaps are viable and warm to touch. There is extensive ecchymosis from clavicular region to abdominal. There is some tracking down of ecchymosis into the lower abdominal area. There are [address] on the left lateral chest. Drainage is still sanguinous however decreased in amount. Transverse draped. There is soft hematoma in the upper lateral aspect of the chest wall. Incision is well approximated. No drainage from the incision. Jose F wrap is in place. HEENT: Normocephalic, atraumatic. NECK: Supple LUNGS: Breathing comfortably HEART: A. fib no RVR ABDOMEN: Ecchymosis tracking down to the abdomen seen midline in the upper abdomen. There are lower abdominal ecchymosis from previous Lovenox shots. Dominant is nontender EXTREMITIES: There is good range of motion of bilateral upper extremities. There is right arm ecchymosis, blood pressure, and there is left arm ecchymosis noted Vital Signs Vital Signs Date Time Temp Pulse Resp B/P (MAP) Pulse Ox O2 Delivery O2 Flow Rate FiO2 04/19/20 06:00 97.7 95 18 107/71 (83) 98 Room Air 04/18/20 22:00 2.0 I&Os I&O- Last 24 Hours up to 6 AM 04/19/20 06:00 Intake Total 2450 ml Output Total 3930 ml Balance -1480 ml Laboratory Data Labs 24H Laboratory Tests 2 04/19/20 05:37: Nucleated Red Blood Cells % (auto) 0.0, Prothrombin Time 13.0, Prothromb Time International Ratio 0.96, Anion Gap 4L, Glomerular Filtration Rate > 60.0, Calcium Level 7.8L CBC/BMP Laboratory Tests 04/19/20 05:37 Impression 64-year-old woman with numerous comorbidities, on chronic anticoagulation, status post left breast mastectomy with left sentinel lymph node biopsy done on 04/17/2020 for diagnosis of left breast cancer. Developed postoperative hematoma and extensive ecchymosis. Patient is hemodynamically stable. Her hemoglobin is trending down. Her drain output decreases. - Continue compression with Jose F wrap - Hold anticoagulation - will monitor hematoma - monitor H/H, started iron and B12 today - inpatient admission - Hospitalist team consulted for med management, I greatly appreciate the input in taking care of Ms. Sams - continue IS - OOB - prehospital diet - SCDs Plan / VTE VTE Prophylaxis Ordered?: Yes VTE Exclusion Pharmacological: Active Bleeding (L chest wall hematoma) VAUGHN CHAVES DO Apr 19, 2020 06:48
[2020-04-19] MEDS: SYMBICORT 160/4.5MCG INHALER 6GM INH SCH ×2 (07:57→20:06)
[2020-04-19] MEDS: oxyBUTYnin 5 MG TAB PO SCH (08:40)
[2020-04-19] MEDS: CYANOCOBALAMIN 500 MCG TAB PO SCH (08:40)
[2020-04-19] MEDS: IRON POLYSAC (NIFEREX) 150 MG CAP PO SCH (08:40)
[2020-04-19] MEDS: METOPROLOL SUCC *XL* 12.5MG PER 1/2 TAB (TopROL *XL*) PO SCH (08:41)
[2020-04-19 14:00] VITALS: BP 107/48
--- NOTE | 2020-04-19 17:59 | IPNPDOC ---
Text Note Date of Service The patient was seen on 04/19/20. NOTE Subjective: 74-year-old female patient who was admitted yesterday to the hospital after having a elective left-sided mastectomy. She had an hematoma during the surgery and was admitted to the hospital for further management and monitoring. Patient seen at bedside on 04/19/2020. Patient had a good night sleep, denies any acute events overnight, she reports using CPAP at nighttime. She denies having any nausea, vomiting, chest pain, shortness of breath, abdominal pain, diarrhea, dysuria. Objective: General: Patient is awake, alert, oriented times three, sitting in bed , no apparent distress. Cardiovascular: S1, S2, systolic grade 2 murmur heard in the second left intercostal space, no carotid heard. Respiratory: Chest is clear to auscultation bilaterally, No rhonchi, wheezes or rubs. Patient has a janna bandage wrapped around her chest, noted a bruise about her left clavicle and in the epigastric region have bruises bigger than yesterday. She reports her pain on palpation has reduced from yesterday but still has mild pain on palpation. Abdomen: Soft, bowel sounds positive, no bruits. she still has the bruises from Lovenox injections. Denies having any tenderness on palpation over the bruise. Extremities: No clubbing or cyanosis. No edema, no tenderness. 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 Assessment: Mrs. Sams is a 74-year-old female patient who was admitted to the hospital after a elective left mastectomy surgery. She had a hematoma from after the surgery and was admitted to the hospital for further management and monitoring. She has a history of A. fib and was on anticoagulation Coumadin at home and was bridged with Lovenox prior to the surgery. Plan: Breast carcinoma status post left mastectomy: Will continue to monitor her. She developed a hematoma postsurgery and was having a big bruise on her left breast region extending from clavicle to the epigastric area. - Here Hb was 8.8 dropped from 10.4, most likely due to hematoma, will start her on oral iron and multivitamins. Will follow vascular surgeon recommendations. Atrial fibrillation(on Coumadin at home): Patient was switched to Lovenox for surgery and her last dose of Lovenox was on 04/16/2020. She got a dose of heparin on the day of surgery(04/17/2020) Patient had an complication had a hematoma from surgery in her chest wall, as a result her anticoagulation is on hold. Patient's risk of stroke is 2.9% per year. Patient was made aware of her risks and benefits of holding her anticoagulation. Will restart her anticoagulation based on the recommendations of Dr. Beckett and patient's improvement. Hypertension: - will continue her home metoprolol 12.5mg Depression: - will continue Duloxetine 60mg DVT prophylaxis: Teds and sequentials. VS,Fishbone, I+O VS, Fishbone, I+O Laboratory Tests 04/19/20 05:37 Vital Signs Date Time Temp Pulse Resp B/P (MAP) Pulse Ox O2 Delivery O2 Flow Rate FiO2 04/19/20 13:16 18 04/19/20 06:00 97.7 95 107/71 (83) 98 Room Air 04/18/20 22:00 2.0 I&O- Last 24 Hours up to 6 AM 04/19/20 06:00 Intake Total 2450 ml Output Total 3930 ml Balance -1480 ml GME ATTESTATION GME ATTESTATION My faculty preceptor for this patient encounter was physically present during the encounter and was fully available. All aspects of the patient interview, examination, medical decision making process, and medical care plan development were reviewed and approved by the faculty preceptor. The faculty preceptor is aware and concurs with the plan as stated in the body of this note and will attest to such by his/her cosignature. ATTENDING NOTE Patient was seen and examined by me personally with the residents/ students. I agree with the above assessment and plan Rowan Escobar MD Apr 19, 2020 13:37 TOSHIA REYES MD Apr 24, 2020 12:45
[2020-04-19 20:00] VITALS: BP 105/68
[2020-04-19] MEDS: DULoxetine 30 MG CAP (CYMBALTA) PO SCH (21:00)
--- NOTE | 2020-04-19 21:06 | ROOPDOC ---
[facility] Report Of Operation Report of Operation DATE OF PROCEDURE: 04/17/20 PREPROCEDURE DIAGNOSES: left breast cancer POSTPROCEDURE DIAGNOSES: left breast cancer PROCEDURE: left simple mastectomy with left sentinel lymph node biopsy, left pectoralis and serratus muscle block SURGEON: Vaughn Beckett ANESTHESIA: general ESTIMATED BLOOD LOSS: Approximately 200 mL. COMPLICATIONS: none REMARKS: left breast Ca identified on intraop US - marked with double stitch DESCRIPTION OF PROCEDURE: INDICATIONS: Ms. Sams is a 74 year old lady, with multiple comorbidities, on chronic antic oagulation (coumadin, bridged on lovenox till 04/16/20) who was found to have Left breast cancer, screen detected. Patient already has a Hx of right breast cancer which was treated with right simple mastectomy in the past. Patient requested left simple mastectomy to treat her current cancer. I discussed with the patient that she does have a higher risk of complications due to her cardiac history and chronic anticoagulation. We discussed available surgical options and patient opted for simple mastectomy without reconstruction. I explained to the patient that because she has an invasive breast cancer we also need to evaluate her lymph nodes with sentinel lymph node biopsy. Risks and possible complications of surgical procedure including bleeding, infection and injury to surrounding structures were explained to the patient and she wished to proceed. Consent was signed. No subcutaneous heparin was given. Lymphoscintigraphy was reviewed preoperatively and the tracer was found in the left axilla. DETAILS: Patient was taken to the operating room and placed supine on the operating room table. Pillow was placed under her knees. Foam was placed under her heels. A sign in was called stating patients name, date of and the procedure to be done. Preoperative antibiotics were infused. Smooth induction of general anesthesia was done. Patients hands were extended on arm rests. Care was taken not to over extend patients arms. Dewitt catheter was placed. Pillow was placed under the knees and a foam was placed under the hills. Sequential compression devices were placed and assured to function correctly. Patients left breast and axilla were prepped and draped in the usual fashion. Neoprobe was used to jazzy the site of maximal signal in the axilla. The left breast possible tumor extension was marked on the skin using ultrasound guidance. The cancer location was noted on perioperative sonography and marked on the skin. Appropriate time out was done and patients name, date of , and the procedure to be done were confirmed. Procedure was started with left mastectomy. Thetransverse elliptical incision incorporating skin and nipple areolar complex was made with scalpel number 15. Subcutaneous flaps were developed using electrocautery dissection. Dissection was carried toward the inframammary fold inferiorly, toward sternum medially, toward inferior aspect of clavicle sup eriorly and toward the axilla laterally. Breast tissue was dissected from the muscle posteriorly and pectoralis fascia was taken with the specimen. The dissection was carried all the way to the [place] making sure that axilla is not entered prematurely. Breast specimen was marked for orientation with short single stitch marking superior edge of mastectomy and long single stitch marking latera edge of mastectomy. Double stitch jose site of cancer. The specimen was weighted and weight of 600 grams was reported. The specimen was then placed in formaldehyde, and passed to pathology. Mastectomy cavity was irrigated and adequate hemostasis was achieved. Next, the attention was turned toward the left axilla which was accessed from the mastectomy site. Clavipectoral fascia was opened over the site of maximum Neoprobe signal. Area of high signal was identified in the upper lateral axilla. [place] lymph node #1 was identified and 10 second ex-vivo count was [address]. Second sentinel lymph node was identified in the lower medial axilla along the serratus muscle and chest wall and the 10 second ex-vivo count was 1550. The third sentinel lymph node was identified in the same location next to the lymph node #2. The 10 second ex-vivo count was 3682. Specimens were labeled appropriately and sent to pathology. Axilla was explored for presence of any additional lymph nodes and none were identified. 10 second count of the background was 146. The axilla was irrigated and hemostasis was achieved. At this point, two 19 [place] John drains were placed into the mastectomy cavity and axilla, respectively, through a separate stab incision and secured at the skin with stitches. Next, pectoral and serratus plane blocks on the left side were done with Exparel. Deep dermal sutures were placed with 2-0 Vicryl to approximate mastectomy site edges. Dermis was closed with 3-0 Vicryl. Skin was closed with 4-0 Monocryl. Surgical glue was applied to the top of the incision. Prineo skin closing system dressing was applied next to the incision. Surgical gauze was placed over the incision and the chest was wrapped with OSORIO wrap. Final instruments and sponge count were correct. Patient emerged from general anesthesia without any problems. Patient tolerated procedure well and was taken to recovery unit in stable condition. VAUGHN BECKTET DO Apr 19, 2020 21:06
[2020-04-19] MEDS: RAMELTEON 8 MG TAB (ROZEREM) PO PRN (22:33)
[2020-04-20 05:41] VITALS: BP 106/67
[2020-04-20] MEDS: GABAPENTIN 300 MG CAP PO SCH ×3 (06:15→20:21)
[2020-04-20] MEDS: traMADol 50 MG TAB PO PRN ×2 (06:16→23:29)
[2020-04-20] MEDS: SYMBICORT 160/4.5MCG INHALER 6GM INH SCH ×2 (07:13→19:18)
--- NOTE | 2020-04-20 08:07 | IPNPDOC ---
Subjective General Date Seen: Apr 20, 2020 Subject Chief Complaint/History The patient is a 74-year-old female, with numerous comorbidities, on chronic anticoagulation, admitted postop after left mastectomy and left sentinel lymph node biopsy done on 04/17/2020 for diagnosis of left breast cancer. Patient developed postoperative hematoma despite the Jose F wrap and holding her anticoagulation. Her last dose of Lovenox was 04/16/2020. She did not get anticoagulation on day of surgery. She remains stable. Her hemoglobin was trending down. labs were nod done this morning. Ordered them now. Ecchymosis is tracking down with gravity. There are also new ecchymosis on b/l upper extremities - patient denied trauma. Drain output decreased. Patient is doing well from that pain point of view. She ambulates. She tolerates food. Current Medications Current Medications Current Medications Medications (Trade) Dose Ordered Sig/Carol Route PRN Reason Start Time Stop Time Status Last Admin Dose Admin Acetaminophen (Tylenol Tab) 650 mg Q6HP PRN PO PAIN LEVEL 1-4 04/17/20 13:15 04/19/20 03:47 Albuterol Sulfate (Proventil, Ventolin Hfa) 2 puff Q4HP PRN INH SOB/WHEEZING 04/17/20 16:00 Budesonide/ Formoterol Fumarate (Symbicort 160/ 4.5mcg) 2 puff RBID INH 04/17/20 20:00 04/20/20 07:13 Cyanocobalamin (Vitamin B12) 500 mcg DAILY PO 04/19/20 09:00 04/19/20 08:40 Duloxetine HCl (Cymbalta) 60 mg QHS PO 04/17/20 21:00 04/19/20 21:00 Fentanyl Citrate (Sublimaze) 25 mcg Q5MP PRN IV PAIN LEVEL 5-10 04/17/20 13:30 04/17/20 14:30 DC Gabapentin (Neurontin) 600 mg Q8H PO 04/17/20 14:00 04/20/20 06:15 Iron (Niferex) 150 mg DAILY PO 04/19/20 09:00 04/19/20 08:40 Lactated Ringer's 1,000 ml @ 100 mls/hr Q10H IV 04/17/20 13:30 04/17/20 14:30 DC Lidocaine HCl (LIDOCAINE 1% MDV 20ml) 0.1 ml ONCE PRN SQ DISCOMFORT BEFORE IV START 04/17/20 06:00 04/17/20 13:18 DC Metoprolol Succinate (TopROL XL) 12.5 mg DAILY PO 04/18/20 09:00 Morphine Sulfate (Morphine Sulfate Inj) 2 mg Q3H PRN IV SEVERE PAIN (PS 8-10) 04/17/20 13:15 Ondansetron HCl (ZOFRAN INJection) 4 mg Q4HP PRN IV NAUSEA OR VOMITING 04/17/20 13:30 04/17/20 14:30 DC Oxybutynin Chloride (Ditropan) 5 mg DAILY PO 04/18/20 09:00 04/19/20 08:40 Oxycodone HCl (Roxicodone, Oxyir) 5 mg ASDIRECTED PRN PO PAIN LEVEL 1-4 04/17/20 13:30 04/17/20 14:30 DC Ramelteon (Rozerem) 8 mg QHS PRN PO INSOMNIA 04/18/20 20:30 04/19/20 22:33 Tramadol HCl (Ultram) 50 mg Q6HP PRN PO MODERATE PAIN (PS 5-7) 04/17/20 13:15 04/20/20 06:16 Allergies Coded Allergies: TAPE (Verified Allergy, Intermediate, rash, 04/10/20) prefers paper tape if possible Objective Physical Examination Examination GENERAL APPEARANCE:Patient seen, laying in bed, awake, alert, and oriented. SKIN: Left chest ecchymosis BREAST: Right breast is surgically absent. Left mastectomy flaps are viable and warm to touch. There is extensive ecchymosis from clavicular region to abdominal. There is some tracking down of ecchymosis into the lower abdominal area. There are [address] on the left lateral chest. Drainage is still sanguinous however decreased in amount. Transverse draped. There is soft hematoma in the upper lateral aspect of the chest wall. Incision is well approximated. No drainage from the incision. Jose F wrap is in place. HEENT: Normocephalic, atraumatic. NECK: Supple LUNGS: Breathing comfortably HEART: A. fib no RVR ABDOMEN: Ecchymosis tracking down to the abdomen seen midline in the upper abdomen. There are lower abdominal ecchymosis from previous Lovenox shots. Abdomen is nontender. There is new tracking down of ecchymosis into the flank area on the left EXTREMITIES: There is good range of motion of bilateral upper extremities. There are new b/l worsening ecchymosis in upper extremities. Vital Signs Vital Signs Date Time Temp Pulse Resp B/P (MAP) Pulse Ox O2 Delivery O2 Flow Rate FiO2 04/20/20 07:15 16 04/20/20 05:41 96.7 115 106/67 (80) 98 Room Air 04/18/20 22:00 2.0 I&Os I&O- Last 24 Hours up to 6 AM 04/20/20 06:00 Intake Total 1750 ml Output Total 2800 ml Balance -1050 ml Impression 64-year-old woman with numerous comorbidities, on chronic anticoagulation, status post left breast mastectomy with left sentinel lymph node biopsy done on 04/17/2020 for diagnosis of left breast cancer. Developed postoperative hematoma and extensive ecchymosis. Patient is hemodynamically stable. Her hemoglobin was trending down. Her drain output decreases. - awaiting Hb results, labs not done this AM, ordered it now - trial of JOSE F removal, will check in PM to assure no worsening of hematoma/ ecchymosis - Hold anticoagulation - will monitor hematoma - monitor drain output - continue iron and B12 today - inpatient admission - Hospitalist team consulted for med management, I greatly appreciate the input in taking care of Ms. Sams - continue IS - OOB - prehospital diet - SCDs Plan / VTE VTE Prophylaxis Ordered?: Yes VTE Exclusion Pharmacological: Active Bleeding (L chest wall hematoma) VAUGHN CHAVES DO Apr 20, 2020 08:04
[2020-04-20 08:10] LABS: HEMATOCRIT 27.9 % (36.0-47.0); MEAN CORPUSCULAR HEMOGLOBIN 34.9 pg (27.0-33.0); MEAN CORPUSCULAR HGB CONC 32.3 g/dl (32.0-36.5); MEAN CORPUSCULAR VOLUME 108.1 fl (80.0-96.0); PLATELET COUNT, AUTOMATED 178 10^3/uL (150-450); RED BLOOD COUNT 2.58 10^6/uL (4.00-5.40)
[2020-04-20] MEDS: IRON POLYSAC (NIFEREX) 150 MG CAP PO SCH (08:35)
[2020-04-20] MEDS: METOPROLOL SUCC *XL* 12.5MG PER 1/2 TAB (TopROL *XL*) PO SCH (08:35)
[2020-04-20] MEDS: oxyBUTYnin 5 MG TAB PO SCH (08:35)
[2020-04-20] MEDS: CYANOCOBALAMIN 500 MCG TAB PO SCH (08:36)
[2020-04-20 14:00] VITALS: BP 110/68
--- NOTE | 2020-04-20 19:33 | IPNPDOC ---
Text Note Date of Service The patient was seen on 04/20/20. NOTE Subjective: 74-year-old female patient who was admitted yesterday to the hospital after having a elective left-sided mastectomy. She had an hematoma during the surgery and was admitted to the hospital for further management and monitoring. Patient seen at bedside on 04/20/2020. Patient had a good night sleep, denies any acute events overnight, she reports using CPAP at nighttime. She denies having any nausea, vomiting, chest pain, shortness of breath, abdominal pain, diarrhea, dysuria. Objective: General: Patient is awake, alert, oriented times three, sitting in bed , no apparent distress. Cardiovascular: S1, S2, systolic grade 2 murmur heard in the second left intercostal space, no carotid heard. Respiratory: Chest is clear to auscultation bilaterally, No rhonchi, wheezes or rubs. Today patient's Jose F bandage was removed, she has extensive bruising over her chest wall and bruising over her right axilla and left arm as well. She reports her tenderness/pain has improved but still has on palpation. Abdomen: Soft, bowel sounds positive, no bruits. she still has the bruises from Lovenox injections. Mild tenderness over the bruises. Extremities: No clubbing or cyanosis. No edema, no tenderness. 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 Assessment: Mrs. Sams is a 74-year-old female patient who was admitted to the hospital after a elective left mastectomy surgery. She had a hematoma from after the surgery and was admitted to the hospital for further management and monitoring. She has a history of A. fib and was on anticoagulation Coumadin at home and was bridged with Lovenox prior to the surgery. Plan: Breast carcinoma status post left mastectomy: Will continue to monitor her. She developed a hematoma postsurgery and was having a big bruise on her left breast region extending from clavicle to the epigastric area. - Her hemoglobin today is 9, will continue oral iron and multivitamins. Will follow vascular surgeon recommendations. Atrial fibrillation(on Coumadin at home): Patient was switched to Lovenox for surgery and her last dose of Lovenox was on 04/16/2020. She got a dose of heparin on the day of surgery(04/17/2020) Patient had an complication had a hematoma from surgery in her chest wall, as a result her anticoagulation is on hold. Patient's risk of stroke is 2.9% per year. Patient was made aware of her risks and benefits of holding her anticoagulation. Will restart her anticoagulation based on the recommendations of Dr. Beckett and patient's improvement. Hypertension: - will continue her home metoprolol 12.5mg Depression: - will continue Duloxetine 60mg DVT prophylaxis: Teds and sequentials. VS,Fishbone, I+O VS, Fishbone, I+O Laboratory Tests 04/20/20 07:46 Vital Signs Date Time Temp Pulse Resp B/P (MAP) Pulse Ox O2 Delivery O2 Flow Rate FiO2 04/20/20 14:00 98.4 79 17 110/68 (82) 97 Room Air 04/18/20 22:00 2.0 I&O- Last 24 Hours up to 6 AM 04/20/20 06:00 Intake Total 1750 ml Output Total 2800 ml Balance -1050 ml GME ATTESTATION GME ATTESTATION My faculty preceptor for this patient encounter was physically present during the encounter and was fully available. All aspects of the patient interview, examination, medical decision making process, and medical care plan development were reviewed and approved by the faculty preceptor. The faculty preceptor is aware and concurs with the plan as stated in the body of this note and will attest to such by his/her cosignature. ATTENDING NOTE Patient was seen and examined by me personally with the residents/ students. I agree with the above assessment and plan Rowan Escobar MD Apr 20, 2020 19:33 TOSHIA REYES MD Apr 24, 2020 12:46
[2020-04-20] MEDS: DULoxetine 30 MG CAP (CYMBALTA) PO SCH (20:22)
[2020-04-20 22:00] VITALS: BP 104/65
[2020-04-20] MEDS: RAMELTEON 8 MG TAB (ROZEREM) PO PRN (23:29)
[2020-04-21 06:00] VITALS: BP 116/70
[2020-04-21] MEDS: GABAPENTIN 300 MG CAP PO SCH ×3 (06:07→22:18)
[2020-04-21 07:04] LABS: HEMATOCRIT 26.7 % (36.0-47.0); HEMOGLOBIN 8.6 g/dl (12.0-15.5); MEAN CORPUSCULAR HEMOGLOBIN 34.8 pg (27.0-33.0); MEAN CORPUSCULAR HGB CONC 32.2 g/dl (32.0-36.5); MEAN CORPUSCULAR VOLUME 108.1 fl (80.0-96.0); PLATELET COUNT, AUTOMATED 200 10^3/uL (150-450); RED BLOOD COUNT 2.47 10^6/uL (4.00-5.40); WHITE BLOOD COUNT 5.4 10^3/uL (4.0-10.0)
[2020-04-21 07:25] LABS: BLOOD UREA NITROGEN 9 MG/DL (7-18); CALCIUM LEVEL 8.3 MG/DL (8.8-10.2); CARBON DIOXIDE LEVEL 30 MEQ/L (21-32); CHLORIDE LEVEL 105 MEQ/L (98-107); CREATININE FOR GFR 0.56 MG/DL (0.55-1.30); GLOMERULAR FILTRATION RATE > 60.0 (>39); GLUCOSE, FASTING 99 MG/DL (70-100); MAGNESIUM LEVEL 2.1 MG/DL (1.8-2.4); POTASSIUM SERUM 4.1 MEQ/L (3.5-5.1); SODIUM LEVEL 140 MEQ/L (136-145)
[2020-04-21] MEDS: SYMBICORT 160/4.5MCG INHALER 6GM INH SCH ×2 (07:39→20:19)
[2020-04-21] MEDS: oxyBUTYnin 5 MG TAB PO SCH (08:24)
[2020-04-21] MEDS: CYANOCOBALAMIN 500 MCG TAB PO SCH (08:24)
[2020-04-21] MEDS: METOPROLOL SUCC *XL* 12.5MG PER 1/2 TAB (TopROL *XL*) PO SCH (08:24)
[2020-04-21] MEDS: IRON POLYSAC (NIFEREX) 150 MG CAP PO SCH (08:24)
--- NOTE | 2020-04-21 09:25 | IPNPDOC ---
Subjective General Date Seen: Apr 21, 2020 Subject Chief Complaint/History The patient is a 74-year-old female, with numerous comorbidities, on chronic anticoagulation, admitted postop after left mastectomy and left sentinel lymph node biopsy done on 04/17/2020 for diagnosis of left breast cancer. Patient developed postoperative hematoma despite the Jose F wrap and holding her anticoagulation. Her last dose of Lovenox was 04/16/2020. She did not get anticoagulation on day of surgery. She remains stable. Her hemoglobin was trending down but now is between 8-9. she has extensive ecchymosis that is tracking down with gravity on her chest and upper extremities. Drain output decreased. Patient is doing well from that pain point of view. She ambulates. She tolerates food. Current Medications Current Medications Current Medications Medications (Trade) Dose Ordered Sig/Carol Route PRN Reason Start Time Stop Time Status Last Admin Dose Admin Acetaminophen (Tylenol Tab) 650 mg Q6HP PRN PO PAIN LEVEL 1-4 04/17/20 13:15 04/19/20 03:47 Albuterol Sulfate (Proventil, Ventolin Hfa) 2 puff Q4HP PRN INH SOB/WHEEZING 04/17/20 16:00 Budesonide/ Formoterol Fumarate (Symbicort 160/ 4.5mcg) 2 puff RBID INH 04/17/20 20:00 04/21/20 07:39 Cyanocobalamin (Vitamin B12) 500 mcg DAILY PO 04/19/20 09:00 04/21/20 08:24 Duloxetine HCl (Cymbalta) 60 mg QHS PO 04/17/20 21:00 04/20/20 20:22 Fentanyl Citrate (Sublimaze) 25 mcg Q5MP PRN IV PAIN LEVEL 5-10 04/17/20 13:30 04/17/20 14:30 DC Gabapentin (Neurontin) 600 mg Q8H PO 04/17/20 14:00 04/21/20 06:07 Iron (Niferex) 150 mg DAILY PO 04/19/20 09:00 04/21/20 08:24 Lactated Ringer's 1,000 ml @ 100 mls/hr Q10H IV 04/17/20 13:30 04/17/20 14:30 DC Lidocaine HCl (LIDOCAINE 1% MDV 20ml) 0.1 ml ONCE PRN SQ DISCOMFORT BEFORE IV START 04/17/20 06:00 04/17/20 13:18 DC Metoprolol Succinate (TopROL XL) 12.5 mg DAILY PO 04/18/20 09:00 04/21/20 08:24 Morphine Sulfate (Morphine Sulfate Inj) 2 mg Q3H PRN IV SEVERE PAIN (PS 8-10) 04/17/20 13:15 Ondansetron HCl (ZOFRAN INJection) 4 mg Q4HP PRN IV NAUSEA OR VOMITING 04/17/20 13:30 04/17/20 14:30 DC Oxybutynin Chloride (Ditropan) 5 mg DAILY PO 04/18/20 09:00 04/21/20 08:24 Oxycodone HCl (Roxicodone, Oxyir) 5 mg ASDIRECTED PRN PO PAIN LEVEL 1-4 04/17/20 13:30 04/17/20 14:30 DC Ramelteon (Rozerem) 8 mg QHS PRN PO INSOMNIA 04/18/20 20:30 04/20/20 23:29 Tramadol HCl (Ultram) 50 mg Q6HP PRN PO MODERATE PAIN (PS 5-7) 04/17/20 13:15 04/20/20 23:29 Allergies Coded Allergies: TAPE (Verified Allergy, Intermediate, rash, 04/10/20) prefers paper tape if possible Objective Physical Examination Examination GENERAL APPEARANCE:Patient seen, laying in bed, awake, alert, and oriented. SKIN: Left chest ecchymosis BREAST: Right breast is surgically absent. Left mastectomy flaps are viable and warm to touch. There is extensive ecchymosis from clavicular region to abdominal. There is some tracking down of ecchymosis into the lower abdominal area. There are [address] on the left lateral chest. Drainage is still sanguinous however decreased in amount. There is soft hematoma in the upper lateral aspect of the chest wall. Incision is well approximated. No drainage from the incision. HEENT: Normocephalic, atraumatic. NECK: Supple LUNGS: Breathing comfortably HEART: A. fib no RVR ABDOMEN: Ecchymosis tracking down to the abdomen seen midline in the upper abdomen and in the left flank area. There are lower abdominal ecchymosis from previous Lovenox shots. Abdomen is nontender. EXTREMITIES: There is good range of motion of bilateral upper extremities. There are stable ecchymosis in upper extremities. Vital Signs Vital Signs Date Time Temp Pulse Resp B/P (MAP) Pulse Ox O2 Delivery O2 Flow Rate FiO2 04/21/20 08:24 95 116/70 04/21/20 06:00 98.1 18 95 Room Air 04/18/20 22:00 2.0 I&Os I&O- Last 24 Hours up to 6 AM 04/21/20 06:00 Intake Total 1590 ml Output Total 3480 ml Balance -1890 ml Laboratory Data Labs 24H Laboratory Tests 2 04/21/20 06:13: Nucleated Red Blood Cells % (auto) 0.0, Anion Gap 5L, Glomerular Filtration Rate > 60.0, Calcium Level 8.3L, Magnesium Level 2.1 CBC/BMP Laboratory Tests 04/21/20 06:13 Impression 64-year-old woman with numerous comorbidities, on chronic anticoagulation, status post left breast mastectomy with left sentinel lymph node biopsy done on 04/17/2020 for diagnosis of left breast cancer. Developed postoperative hematoma and extensive ecchymosis. Patient is hemodynamically stable. Her hemoglobin is stable between 8-9. Her drain output decreases. - trial of therapeutic lovenox (management per medical team) - if Hb/ drain output/ ecchymosis remain stable then will transition to coumadin - keep JOSE F off for now - will monitor hematoma/ ecchymosis/ hb/ drain output - continue iron and B12 - inpatient admission - Hospitalist team consulted for med management, I greatly appreciate the input in taking care of Ms. Sams - continue IS - OOB - prehospital diet - SCDs Plan / VTE VTE Prophylaxis Ordered?: Yes VAUGHN CHAVES DO Apr 21, 2020 09:25
--- NOTE | 2020-04-21 10:04 | IPNPDOC ---
Date Seen The patient was seen on 04/21/20. Progress Note SUBJECTIVE: Seen and examined at bedside this morning. 74-year-old female with history of atrial fibrillation, chronic anticoagulation, admitted after left mastectomy and left sentinel lymph node biopsy on April 17 for left breast cancer. She developed a postoperative hematoma, had Jose F wrap and her anticoagulation has been held since April 16. Seen ambulating without difficulties, brushing her teeth in the bathroom. She reports no chest pain, shortness of breath, fever or chills. She does have persistent bruising on her anterior chest wall extending to bilateral upper extremities and lower mid abdomen and L flank OBJECTIVE PHYSICAL EXAMINATION: VITAL SIGNS: please see below General: NAD, comfortable HEENT: PERRLA, EOMI, sclerae clear Neck: supple, normal ROM, no JVD Respiratory: lungs CTAB, no wheeze, no rales, no crackles Chest: Right mastectomy. Left mastectomy new surgical site. Extensive ecchymosis on anterior chest wall extending down to abdomen and bilateral axillary 2 drains on the left lateral chest serosanguineous. Incision is clean, dry without any drainage. CVS: RRR, normal S1, S2, no murmurs Abdo: soft, no masses, no hepatosplenomegaly, BS+, no rebound tenderness, ecchymosis tracking down from chest in the midline and upper abdomen. Extremities: no edema, pulses 2+, ecchymosis in the bilateral upper extremities MSK: no joint deformities, normal ROM Neuro: no focal neuro deficits, moving all 4 extremities, CN2-12 intact. Strength 5/5 in all 4 extremities. No nystagmus. Psych: calm, cooperative, AAO x 3 LABORATORY DATA, IMAGING STUDIES, MICROBIOLOGY: Please see below. DVT prophylaxis ordered?: SCD, AGA stockings ASSESSMENT AND PLAN: 74 yo F admitted after an elective L mastectomy, with a post-operative hematoma. She history of dyslipidemia, osteoporosis, R breast cancer with R mastectomy, AVR, chronic atrial fibrillation, on AC with warfarin. Admitted post op L mastectomy with hematoma, for monitoring. PROBLEMS: #L breast ca s/p mastectomy and LN biopsy w/ post op hematoma: POD#4. Ecchymoses and hematoma. Hgb stable 8-9 (baseline 12). Monitor bleeding, hematoma progress. Iron, B12. Dr. Beckett following. #Chronic atrial fibrillation: previously on coumadin. Switched to SC lovenox pre-op on 04/11, and AC was held on 04/16/20 preoperatively. Chart review indicates that patient was receiving 80 mg lovenox SC q12h, despite her weight of 60 kg. Possibility for hematoma/ecchymoses formation/enlargement due to elevated dose of lovenox. AC was held post-op due to hematoma. Discussed with Dr. Beckett, plan to trial resumption of lovenox today at 60 mg SC, and monitor for bleeding. If hgb remains stable, plan to switch to warfarin on discharge. #HTN: continue home metoprolol 12.5 mg PO daily. #Depression: continue duloxetine 60 mg daily. #Macrocytosis: MCV 108. Check B12, folate. patient taking B12 500 mg PO daily. DVT ppx: TEDs, SCDs, resume therapeutic lovenox at 60 mg SC VS, I&O, 24H, Fishbone Vital Signs/I&O Vital Signs Date Time Temp Pulse Resp B/P (MAP) Pulse Ox O2 Delivery O2 Flow Rate FiO2 04/21/20 08:24 95 116/70 04/21/20 06:00 98.1 18 95 Room Air 04/18/20 22:00 2.0 I&O- Last 24 Hours up to 6 AM 04/21/20 06:00 Intake Total 1590 ml Output Total 3480 ml Balance -1890 ml Laboratory Data 24H LABS Laboratory Tests 2 04/21/20 06:13: Nucleated Red Blood Cells % (auto) 0.0, Anion Gap 5L, Glomerular Filtration Rate > 60.0, Calcium Level 8.3L, Magnesium Level 2.1 CBC/BMP Laboratory Tests 04/21/20 06:13 LEONOR MCCRARY MD Apr 21, 2020 10:04
[2020-04-21] MEDS: ENOXAPARIN 60MG/0.6ML SYRINGE (J1650 PER 10MG) SC SCH ×2 (12:21→22:19)
[2020-04-21 14:00] VITALS: BP 114/68
[2020-04-21 18:07] LABS: HEMATOCRIT 26.8 % (36.0-47.0); HEMOGLOBIN 8.6 g/dl (12.0-15.5)
[2020-04-21] MEDS: DULoxetine 30 MG CAP (CYMBALTA) PO SCH (19:57)
[2020-04-21 22:00] VITALS: BP 106/61
[2020-04-21] MEDS: RAMELTEON 8 MG TAB (ROZEREM) PO PRN (22:18)
[2020-04-21] MEDS: traMADol 50 MG TAB PO PRN (22:19)
[2020-04-22] MEDS: GABAPENTIN 300 MG CAP PO SCH ×3 (06:02→22:04)
[2020-04-22 06:42] LABS: HEMATOCRIT 28.4 % (36.0-47.0); HEMOGLOBIN 9.2 g/dl (12.0-15.5); MEAN CORPUSCULAR HEMOGLOBIN 35.1 pg (27.0-33.0); MEAN CORPUSCULAR HGB CONC 32.4 g/dl (32.0-36.5); MEAN CORPUSCULAR VOLUME 108.4 fl (80.0-96.0); PLATELET COUNT, AUTOMATED 231 10^3/uL (150-450); RED BLOOD COUNT 2.62 10^6/uL (4.00-5.40); WHITE BLOOD COUNT 5.1 10^3/uL (4.0-10.0)
[2020-04-22 07:00] LABS: BLOOD UREA NITROGEN 9 MG/DL (7-18); CALCIUM LEVEL 8.6 MG/DL (8.8-10.2); CARBON DIOXIDE LEVEL 31 MEQ/L (21-32); CHLORIDE LEVEL 105 MEQ/L (98-107); CREATININE FOR GFR 0.54 MG/DL (0.55-1.30); GLOMERULAR FILTRATION RATE > 60.0 (>39); GLUCOSE, FASTING 98 MG/DL (70-100); MAGNESIUM LEVEL 2.2 MG/DL (1.8-2.4); SODIUM LEVEL 139 MEQ/L (136-145)
[2020-04-22] MEDS: SYMBICORT 160/4.5MCG INHALER 6GM INH SCH ×2 (07:14→20:05)
[2020-04-22] MEDS: METOPROLOL SUCC *XL* 12.5MG PER 1/2 TAB (TopROL *XL*) PO SCH (07:52)
[2020-04-22] MEDS: oxyBUTYnin 5 MG TAB PO SCH (07:52)
[2020-04-22] MEDS: CYANOCOBALAMIN 500 MCG TAB PO SCH (07:52)
[2020-04-22] MEDS: IRON POLYSAC (NIFEREX) 150 MG CAP PO SCH (07:53)
--- NOTE | 2020-04-22 09:37 | IPNPDOC ---
Date Seen The patient was seen on 04/22/20. Progress Note SUBJECTIVE: patient was seen and examined at bedside. Doing well. No acute events overnight. Hgb is stable after resuming AC with therapeutic lovenox. Denies fevers, chill, n/v/d. OBJECTIVE PHYSICAL EXAMINATION: VITAL SIGNS: please see below General: NAD, comfortable HEENT: PERRLA, EOMI, sclerae clear Neck: supple, normal ROM, no JVD Respiratory: lungs CTAB, no wheeze, no rales, no crackles Chest: Right mastectomy. Left mastectomy new surgical site. Extensive ecchymosis on anterior chest wall extending down to abdomen and bilateral axillary 2 drains on the left lateral chest serosanguineous. Incision is clean, dry without any drainage. CVS: RRR, normal S1, S2, no murmurs Abdo: soft, no masses, no hepatosplenomegaly, BS+, no rebound tenderness, ecchymosis tracking down from chest in the midline and upper abdomen. Extremities: no edema, pulses 2+, ecchymosis in the bilateral upper extremities MSK: no joint deformities, normal ROM Neuro: no focal neuro deficits, moving all 4 extremities, CN2-12 intact. Strength 5/5 in all 4 extremities. No nystagmus. Psych: calm, cooperative, AAO x 3 LABORATORY DATA, IMAGING STUDIES, MICROBIOLOGY: Please see below. DVT prophylaxis ordered?: SCD, AGA stockings ASSESSMENT AND PLAN: 74 yo F admitted after an elective L mastectomy, with a pos t-operative hematoma. She history of dyslipidemia, osteoporosis, R breast cancer with R mastectomy, AVR, chronic atrial fibrillation, on AC with warfarin. Admitted post op L mastectomy with hematoma, for monitoring. PROBLEMS: #L breast ca s/p mastectomy and LN biopsy w/ post op hematoma: POD#5. Ecchymoses and hematoma. Hgb stable 8-9 (baseline 12). Monitor bleeding, hematoma progress. Iron, B12. Dr. Beckett following. #Chronic atrial fibrillation: previously on coumadin. Switched to SC lovenox pre-op on 04/11, and AC was held on 04/16/20 preoperatively. Chart review indicates that patient was receiving 80 mg lovenox SC q12h, despite her weight of 60 kg. Possibility for hematoma/ecchymoses formation/enlargement due to elevated dose of lovenox. AC was held post-op due to hematoma. Rsumed lovenox 60 mg SC 04/21/20, hgb stable. Resume warfarin 5 mg qhs (home dose 3 mg TThSat, 6 mg M,W,,Thu). Discussed with Dr. Fonseca, indications given porcine aortic valve. Plan to bridge with Sc lovenox until INR 2-3. PCP to monitor INR in 2-3 days and titrate. #HTN: continue home metoprolol 12.5 mg PO daily. #Depression: continue duloxetine 60 mg daily. #Macrocytosis: MCV 108. Check B12, folate. patient taking B12 500 mg PO daily. DVT ppx: TEDs, SCDs, resume therapeutic lovenox at 60 mg SC VS, I&O, 24H, Fishbone Vital Signs/I&O Vital Signs Date Time Temp Pulse Resp B/P (MAP) Pulse Ox O2 Delivery O2 Flow Rate FiO2 04/22/20 07:52 73 116/70 04/22/20 06:00 96.4 18 95 Room Air 04/18/20 22:00 2.0 I&O- Last 24 Hours up to 6 AM 04/22/20 06:00 Intake Total 2010 ml Output Total 1300 ml Balance 710 ml Laboratory Data 24H LABS Laboratory Tests 2 04/22/20 06:02: Nucleated Red Blood Cells % (auto) 0.0, Anion Gap 3L, Glomerular Filtration Rate > 60.0, Calcium Level 8.6L, Magnesium Level 2.2 CBC/BMP Laboratory Tests 04/21/20 18:02 04/22/20 06:02 LEONOR MCCRARY MD Apr 22, 2020 09:37
[2020-04-22] MEDS: ENOXAPARIN 60MG/0.6ML SYRINGE (J1650 PER 10MG) SC SCH ×2 (11:46→22:05)
[2020-04-22 14:00] VITALS: BP 91/55
--- NOTE | 2020-04-22 14:27 | IPNPDOC ---
Subjective General Date Seen: Apr 22, 2020 (8 am) Subject Chief Complaint/History The patient is a 74-year-old female, with numerous comorbidities, on chronic anticoagulation, admitted postop after left mastectomy and left sentinel lymph node biopsy done on 04/17/2020 for diagnosis of left breast cancer. Patient developed postoperative hematoma despite the Jose F wrap and holding her anticoagulation. Her last dose of Lovenox was 04/16/2020. She did not get anticoagulation on day of surgery. She remains stable. Her hemoglobin was trending down but now is between 8-9. She has extensive ecchymosis that is tracking down with gravity on her chest and upper extremities. Drain output decreased. Patient is doing well from that pain point of view. She ambulates. She tolerates food. Lovenox was started on 04/21/20. Hb remained stable. No increased output from the drains Current Medications Current Medications Current Medications Medications (Trade) Dose Ordered Sig/Caorl Route PRN Reason Start Time Stop Time Status Last Admin Dose Admin Acetaminophen (Tylenol Tab) 650 mg Q6HP PRN PO PAIN LEVEL 1-4 04/17/20 13:15 04/19/20 03:47 Albuterol Sulfate (Proventil, Ventolin Hfa) 2 puff Q4HP PRN INH SOB/WHEEZING 04/17/20 16:00 Budesonide/ Formoterol Fumarate (Symbicort 160/ 4.5mcg) 2 puff RBID INH 04/17/20 20:00 04/22/20 07:14 Cyanocobalamin (Vitamin B12) 500 mcg DAILY PO 04/19/20 09:00 04/22/20 07:52 Duloxetine HCl (Cymbalta) 60 mg QHS PO 04/17/20 21:00 04/21/20 19:57 Enoxaparin Sodium (Lovenox) 60 mg Q12H SC 04/21/20 11:00 04/22/20 11:46 Fentanyl Citrate (Sublimaze) 25 mcg Q5MP PRN IV PAIN LEVEL 5-10 04/17/20 13:30 04/17/20 14:30 DC Gabapentin (Neurontin) 600 mg Q8H PO 04/17/20 14:00 04/22/20 06:02 Iron (Niferex) 150 mg DAILY PO 04/19/20 09:00 04/22/20 07:53 Lactated Ringer's 1,000 ml @ 100 mls/hr Q10H IV 04/17/20 13:30 04/17/20 14:30 DC Lidocaine HCl (LIDOCAINE 1% MDV 20ml) 0.1 ml ONCE PRN SQ DISCOMFORT BEFORE IV START 04/17/20 06:00 04/17/20 13:18 DC Metoprolol Succinate (TopROL XL) 12.5 mg DAILY PO 04/18/20 09:00 04/22/20 07:52 Morphine Sulfate (Morphine Sulfate Inj) 2 mg Q3H PRN IV SEVERE PAIN (PS 8-10) 04/17/20 13:15 Ondansetron HCl (ZOFRAN INJection) 4 mg Q4HP PRN IV NAUSEA OR VOMITING 04/17/20 13:30 04/17/20 14:30 DC Oxybutynin Chloride (Ditropan) 5 mg DAILY PO 04/18/20 09:00 04/22/20 07:52 Oxycodone HCl (Roxicodone, Oxyir) 5 mg ASDIRECTED PRN PO PAIN LEVEL 1-4 04/17/20 13:30 04/17/20 14:30 DC Ramelteon (Rozerem) 8 mg QHS PRN PO INSOMNIA 04/18/20 20:30 04/21/20 22:18 Tramadol HCl (Ultram) 50 mg Q6HP PRN PO MODERATE PAIN (PS 5-7) 04/17/20 13:15 04/21/20 22:19 Warfarin Sodium (Coumadin) 5 mg DAILY@17 PO 04/22/20 17:00 Allergies Coded Allergies: TAPE (Verified Allergy, Intermediate, rash, 04/10/20) prefers paper tape if possible Objective Physical Examination Examination GENERAL APPEARANCE:Patient seen, laying in bed, awake, alert, and oriented. SKIN: Left chest ecchymosis BREAST: Right breast is surgically absent. Left mastectomy flaps are viable and warm to touch. There is extensive ecchymosis from clavicular region to abdominal. There is some tracking down of ecchymosis into the lower abdominal area. There are [address] on the left lateral chest. Drainage is still sanguinous however decreased in amount. There is soft hematoma in the upper lateral aspect of the chest wall. Incision is well approximated. No drainage from the incision. HEENT: Normocephalic, atraumatic. NECK: Supple LUNGS: Breathing comfortably HEART: A. fib no RVR ABDOMEN: Ecchymosis tracking down to the abdomen seen midline in the upper abdomen and in the left flank area. There are lower abdominal ecchymosis from previous Lovenox shots. Abdomen is nontender. EXTREMITIES: There is good range of motion of bilateral upper extremities. There are stable ecchymosis in upper extremities. Vital Signs Vital Signs Date Time Temp Pulse Resp B/P (MAP) Pulse Ox O2 Delivery O2 Flow Rate FiO2 04/22/20 07:52 73 116/70 04/22/20 06:00 96.4 18 95 Room Air 04/18/20 22:00 2.0 I&Os I&O- Last 24 Hours up to 6 AM 04/22/20 06:00 Intake Total 2010 ml Output Total 1300 ml Balance 710 ml Laboratory Data Labs 24H Laboratory Tests 2 04/22/20 06:02: Nucleated Red Blood Cells % (auto) 0.0, Anion Gap 3L, Glomerular Filtration Rate > 60.0, Calcium Level 8.6L, Magnesium Level 2.2 CBC/BMP Laboratory Tests 04/21/20 18:02 04/22/20 06:02 Impression 74-year-old woman with numerous comorbidities, on chronic anticoagulation, status post left breast mastectomy with left sentinel lymph node biopsy done on 04/17/2020 for diagnosis of left breast cancer. Developed postoperative hematoma and extensive ecchymosis. Patient is hemodynamically stable. Her hemoglobin is stable between 8-9. Her drain output decreases. - continue therapeutic lovenox, ok to start coumadin today (management per medical team) - monitor hx /drain output / ecchymosis - keep JOSE F off for now - continue iron and B12 - inpatient admission - Hospitalist team consulted for med management, I greatly appreciate the input in taking care of Ms. Sams - continue IS - OOB - prehospital diet - SCDs - will plan for dc home tomorrow if remains stable with f/u in office on 04/25/20 at 10 am. INR will be checked same day - will need Rx for Lovenox/ coumadin / Iron/ B12/ folic acid/ pain meds (ultram 50 mg q6 prn x5 days) - case discussed with nursing staff and medicine team Plan / VTE VTE Prophylaxis Ordered?: Yes VAUGHN CHAVES DO Apr 22, 2020 14:27
[2020-04-22] MEDS ORDERED: WARFARIN SOD 5MG TAB PO SCH (17:00)
[2020-04-22] MEDS: DULoxetine 30 MG CAP (CYMBALTA) PO SCH (19:44)
[2020-04-22 22:00] VITALS: BP 98/56
[2020-04-22] MEDS: RAMELTEON 8 MG TAB (ROZEREM) PO PRN (22:04)
[2020-04-23] MEDS: GABAPENTIN 300 MG CAP PO SCH (05:12)
[2020-04-23 06:00] VITALS: BP 118/81
--- NOTE | 2020-04-23 06:45 | IPNPDOC ---
Subjective General Date Seen: Apr 23, 2020 (6 am) Subject Chief Complaint/History The patient is a 74-year-old female, with numerous comorbidities, on chronic anticoagulation, admitted postop after left mastectomy and left sentinel lymph node biopsy done on 04/17/2020 for diagnosis of left breast cancer. Patient developed postoperative hematoma despite the Jose F wrap and holding her anticoagulation. Her last dose of Lovenox was 04/16/2020. She did not get anticoagulation on day of surgery. She remains stable. Her hemoglobin was trending down but now is between 8-9. She has extensive ecchymosis that is tracking down with gravity on her chest and upper extremities. Drain output decreased. Patient is doing well from that pain point of view. She ambulates. She tolerates food. Lovenox was started on 04/21/20. Hb remained stable. awaiting results today. No increased output from the drains Current Medications Current Medications Current Medications Medications (Trade) Dose Ordered Sig/Carol Route PRN Reason Start Time Stop Time Status Last Admin Dose Admin Acetaminophen (Tylenol Tab) 650 mg Q6HP PRN PO PAIN LEVEL 1-4 04/17/20 13:15 04/19/20 03:47 Albuterol Sulfate (Proventil, Ventolin Hfa) 2 puff Q4HP PRN INH SOB/WHEEZING 04/17/20 16:00 Budesonide/ Formoterol Fumarate (Symbicort 160/ 4.5mcg) 2 puff RBID INH 04/17/20 20:00 04/22/20 20:05 Cyanocobalamin (Vitamin B12) 500 mcg DAILY PO 04/19/20 09:00 04/22/20 07:52 Duloxetine HCl (Cymbalta) 60 mg QHS PO 04/17/20 21:00 04/22/20 19:44 Enoxaparin Sodium (Lovenox) 60 mg Q12H SC 04/21/20 11:00 04/22/20 22:05 Fentanyl Citrate (Sublimaze) 25 mcg Q5MP PRN IV PAIN LEVEL 5-10 04/17/20 13:30 04/17/20 14:30 DC Gabapentin (Neurontin) 600 mg Q8H PO 04/17/20 14:00 04/23/20 05:12 Iron (Niferex) 150 mg DAILY PO 04/19/20 09:00 04/22/20 07:53 Lactated Ringer's 1,000 ml @ 100 mls/hr Q10H IV 04/17/20 13:30 04/17/20 14:30 DC Lidocaine HCl (LIDOCAINE 1% MDV 20ml) 0.1 ml ONCE PRN SQ DISCOMFORT BEFORE IV START 04/17/20 06:00 04/17/20 13:18 DC Metoprolol Succinate (TopROL XL) 12.5 mg DAILY PO 04/18/20 09:00 04/22/20 07:52 Morphine Sulfate (Morphine Sulfate Inj) 2 mg Q3H PRN IV SEVERE PAIN (PS 8-10) 04/17/20 13:15 Ondansetron HCl (ZOFRAN INJection) 4 mg Q4HP PRN IV NAUSEA OR VOMITING 04/17/20 13:30 04/17/20 14:30 DC Oxybutynin Chloride (Ditropan) 5 mg DAILY PO 04/18/20 09:00 04/22/20 07:52 Oxycodone HCl (Roxicodone, Oxyir) 5 mg ASDIRECTED PRN PO PAIN LEVEL 1-4 04/17/20 13:30 04/17/20 14:30 DC Ramelteon (Rozerem) 8 mg QHS PRN PO INSOMNIA 04/18/20 20:30 04/22/20 22:04 Tramadol HCl (Ultram) 50 mg Q6HP PRN PO MODERATE PAIN (PS 5-7) 04/17/20 13:15 04/21/20 22:19 Warfarin Sodium (Coumadin) 5 mg DAILY@17 PO 04/22/20 17:00 04/22/20 17:20 Allergies Coded Allergies: TAPE (Verified Allergy, Intermediate, rash, 04/10/20) prefers paper tape if possible Objective Physical Examination Examination GENERAL APPEARANCE:Patient seen, laying in bed, awake, alert, and oriented. SKIN: Left chest ecchymosis BREAST: Right breast is surgically absent. Left mastectomy flaps are viable and warm to touch. There is extensive ecchymosis from clavicular region to abdominal. There is some tracking down of ecchymosis into the lower abdominal area. There are [address] on the left lateral chest. Drainage is still sanguinous however decreased in amount. There is soft hematoma in the upper lateral aspect of the chest wall. Incision is well approximated. No drainage from the incision. HEENT: Normocephalic, atraumatic. NECK: Supple LUNGS: Breathing comfortably HEART: A. fib no RVR ABDOMEN: Ecchymosis tracking down to the abdomen seen midline in the upper abdomen and in the left flank area. There are lower abdominal ecchymosis from previous Lovenox shots. Abdomen is nontender. EXTREMITIES: There is good range of motion of bilateral upper extremities. There are stable ecchymosis in upper extremities. Vital Signs Vital Signs Date Time Temp Pulse Resp B/P (MAP) Pulse Ox O2 Delivery O2 Flow Rate FiO2 04/23/20 06:00 98.0 97 17 118/81 (93) 99 Room Air 04/18/20 22:00 2.0 I&Os I&O- Last 24 Hours up to 6 AM 04/23/20 06:00 Intake Total 2150 ml Output Total 2675 ml Balance -525 ml Impression 74-year-old woman with numerous comorbidities, on chronic anticoagulation, status post left breast mastectomy with left sentinel lymph node biopsy done on 04/17/2020 for diagnosis of left breast cancer. Developed postoperative hematoma and extensive ecchymosis. Patient is hemodynamically stable. Her hemoglobin is stable between 8-9. Her drain output decreases. - awaiting AM H/H - continue therapeutic Lovenox, Coumadin started yesterday (management per medical team) - monitor drain output / ecchymosis - keep JOSE F off for now - continue iron and B12 - inpatient admission - Hospitalist team consulted for med management, I greatly appreciate the input in taking care of Ms. Sams - continue IS - OOB - prehospital diet - SCDs - drain teaching per nursing staff - if H/H stable this AM, ok to dc home with f/u in office on 04/25/20 at 10 am. INR will be checked same day - will need Rx for Lovenox/ coumadin / Iron/ B12/ folic acid/ pain meds (ultram 50 mg q6 prn x5 days) - No showers (only sponge baths while drains are in), no heavy lifting - record drain output q24h, bring the info to the office - please give patient my pre-printed "mastectomy" care instructions Plan / VTE VTE Prophylaxis Ordered?: Yes VAUGHN CHAVES DO Apr 23, 2020 06:45
[2020-04-23 07:01] LABS: HEMATOCRIT 26.8 % (36.0-47.0); HEMOGLOBIN 8.6 g/dl (12.0-15.5); MEAN CORPUSCULAR HEMOGLOBIN 34.5 pg (27.0-33.0); MEAN CORPUSCULAR HGB CONC 32.1 g/dl (32.0-36.5); MEAN CORPUSCULAR VOLUME 107.6 fl (80.0-96.0); PLATELET COUNT, AUTOMATED 265 10^3/uL (150-450); RED BLOOD COUNT 2.49 10^6/uL (4.00-5.40); WHITE BLOOD COUNT 4.7 10^3/uL (4.0-10.0)
[2020-04-23 07:12] LABS: INR 0.97; PROTHROMBIN TIME 13.1 SECONDS (12.5-14.3)
[2020-04-23 07:14] LABS: BLOOD UREA NITROGEN 12 MG/DL (7-18); CALCIUM LEVEL 8.4 MG/DL (8.8-10.2); CARBON DIOXIDE LEVEL 28 MEQ/L (21-32); CHLORIDE LEVEL 108 MEQ/L (98-107); CREATININE FOR GFR 0.58 MG/DL (0.55-1.30); GLOMERULAR FILTRATION RATE > 60.0 (>39); GLUCOSE, FASTING 95 MG/DL (70-100); MAGNESIUM LEVEL 2.1 MG/DL (1.8-2.4); POTASSIUM SERUM 4.1 MEQ/L (3.5-5.1); SODIUM LEVEL 141 MEQ/L (136-145)
[2020-04-23] MEDS: SYMBICORT 160/4.5MCG INHALER 6GM INH SCH (07:26)
[2020-04-23] MEDS ORDERED: FOLI0.4T PO (08:19)
[2020-04-23] MEDS ORDERED: LOVE0.4I2 SC (08:19)
[2020-04-23] MEDS ORDERED: VITA500T40 PO (08:19)
[2020-04-23] MEDS ORDERED: ACET1TAB55 PO (08:19)
[2020-04-23] MEDS ORDERED: NIFE15CA PO (08:19)
[2020-04-23] MEDS ORDERED: JANT5TAB PO (08:19)
[2020-04-23] MEDS ORDERED: TRAM50TA2 PO (08:22)
--- NOTE | 2020-04-23 08:32 | DS.PDOC ---
Discharge Summary General Date of Admission Date of Discharge 04/23/20 Discharge Summary PROCEDURES PERFORMED DURING STAY: [None]. ADMITTING DIAGNOSES: L breat cancer s/p mastectomy and LN biopsy with post-op hematoma Chronic atrial fibrillation Chronic HTN Depression Macrocytic anemia DISCHARGE DIAGNOSES: L breat cancer s/p mastectomy and LN biopsy with post-op hematoma Chronic atrial fibrillation Chronic HTN Depression Macrocytic anemia COMPLICATIONS/CHIEF COMPLAINT: Left Breast Cancer. HISTORY OF PRESENT ILLNESS: 74-year-old female with history of atrial fibrillation, chronic anticoagulation, admitted after left mastectomy and left sentinel lymph node biopsy on April 17 for left breast cancer. She developed a postoperative hematoma, despite Jose F wrap and her anticoagulation has been held since April 16. She reports no chest pain, shortness of breath, fever or chills. She does have persistent bruising on her anterior chest wall extending to bilateral upper extremities and lower mid abdomen and L flank HOSPITAL COURSE: #L breast ca s/p mastectomy and LN biopsy w/ post op hematoma: Ecchymoses and hematoma. Hgb stable 8-9 (baseline 12). Monitor bleeding, hematoma progress. Iron, B12. Dr. Beckett will follow up with patient 04/25/20. #Chronic atrial fibrillation: previously on coumadin. Switched to SC lovenox pre-op on 04/11, and AC was held on 04/16/20 preoperatively. Chart review indicates that patient was receiving 80 mg lovenox SC q12h, despite her weight of 60 kg. Possibility for hematoma/ecchymoses formation/enlargement due to elevated dose of lovenox. AC was held post-op due to hematoma. Rsumed lovenox 60 mg SC 04/21/20, hgb stable. Resume warfarin 5 mg qhs (home dose 3 mg TThSat, 6 mg M,W,F,Sun). Discussed with Dr. Fonseca. Plan to bridge with SC lovenox until INR 2-3. PCP to monitor INR in 2-3 days and titrate. Per Dr. Beckett, INR will be check on follow up on 04/25/20. #HTN: continue home metoprolol 12.5 mg PO daily. #Depression: continue duloxetine 60 mg daily. #Macrocytosis: MCV 108. Continue with b12, folate DVT ppx: TEDs, SCDs, resume therapeutic lovenox at 60 mg SC DISCHARGE MEDICATIONS: Please see below. ALLERGIES: Please see below. PHYSICAL EXAMINATION ON DISCHARGE: VITAL SIGNS: please see below General: NAD, comfortable HEENT: PERRLA, EOMI, sclerae clear Neck: supple, normal ROM, no JVD Respiratory: lungs CTAB, no wheeze, no rales, no crackles Chest: Right mastectomy. Left mastectomy new surgical site. Improving ecchymoses on anterior chest wall extending down to abdomen and bilateral axillary 2 drains on the left lateral chest serosanguineous. Incision is clean, dry without any drainage. CVS: RRR, normal S1, S2, no murmurs Abdo: soft, no masses, no hepatosplenomegaly, BS+, no rebound tenderness, ecchymosis tracking down from chest in the midline and upper abdomen. Extremities: no edema, pulses 2+, ecchymosis in the bilateral upper extremities MSK: no joint deformities, normal ROM Neuro: no focal neuro deficits, moving all 4 extremities, CN2-12 intact. Strength 5/5 in all 4 extremities. No nystagmus. Psych: calm, cooperative, AAO x 3 LABORATORY DATA: Please see below. IMAGING: Lymph Scan AK (04/17/20) FINDINGS: Images obtained 1 hour after injection show 2 left axilla foci. IMPRESSION: Two left axillary foci. PROGNOSIS: good ACTIVITY: [As tolerated]. DIET: 2G Na. DISCHARGE PLAN: DC home with PCP and breast surgery follow up. Resumed AC with warfarin, with 5 days of lovenox bridging until therapeutic. DISPOSITION: . DISCHARGE INSTRUCTIONS: No showers (only sponge baths while drains are in), no heavy lifting Record drain output every 24 hours, bring the info to the office. PLEASE FOLLOW UP WITH YOUR PRIMARY CARE DOCTOR WITHIN 3 DAYS PLEASE FOLLOW UP WITH DR. LEWIS ON 04/25/20 AT 10 AM. PLEASE TAKE YOUR MEDICATIONS PRESCRIBED. CONTINUE WITH LOVENOX INJECTIONS UNTIL INR THERAPEUTIC. YOU WERE PRESCRIBED WARFARIN 5 MG TABS. YOUR PRIMARY CARE DOCTOR WILL ADJUST DOSING APPROPRIATE BASED ON INR LEVELS. IF YOU DEVELOP BLEEDING, WORSENING BRUISING, CHEST PAIN, SHORTNESS OF BREATH, FEVERS, CHILLS, BLEEDING OR OTHERWISE WORSENING OF YOUR SYMPTOMS, PLEASE CALL 911 OR RETURN TO THE EMERGENCY DEPARTMENT. ITEMS TO FOLLOWUP ON ON OUTPATIENT: 1. INR 2. Breast surgery clinic DISCHARGE CONDITION: [Stable]. TIME SPENT ON DISCHARGE: Greater than 30 minutes. Vital Signs/I&Os Vital Signs Date Time Temp Pulse Resp B/P (MAP) Pulse Ox O2 Delivery O2 Flow Rate FiO2 04/23/20 06:00 98.0 97 17 118/81 (93) 99 Room Air 04/18/20 22:00 2.0 I&O- Last 24 Hours up to 6 AM 04/23/20 05:59 Intake Total 2000 ml Output Total 2675 ml Balance -675 ml Laboratory Data Labs 24H Laboratory Tests 2 04/23/20 06:32: Nucleated Red Blood Cells % (auto) 0.0, Prothrombin Time 13.1, Prothromb Time International Ratio 0.97, Anion Gap 5L, Glomerular Filtration Rate > 60.0, Calcium Level 8.4L, Magnesium Level 2.1 CBC/BMP Laboratory Tests 04/23/20 06:32 Discharge Medications Scheduled Albuterol Sulfate (Proair Hfa) 8.5 Gm Hfa.aer.ad, 2 PUFF INH PRN, (Reported) Budesonide/Formoterol (Symbicort 160-4.5 Mcg Inhaler) 6 Gm Hfa.aer.ad, 2 PUFF INH BID, (Reported) Cyanocobalamin (Vitamin B-12) (Vitamin B-12) 500 Mcg Tablet, 500 MCG PO DAILY Duloxetine Hcl (Duloxetine HCl) 60 Mg Capsule.dr, 60 MG PO QHS, (Reported) Enoxaparin Sodium (Lovenox) 60 Mg/0.6 Ml Syringe, 60 MG SC Q12H Folic Acid (Folic Acid) 0.4 Mg Tablet, 1 TAB PO DAILY Gabapentin (Gabapentin) 600 Mg Tablet, 600 MG PO Q8H, (Reported) Iron Ag,Ps/C/Fa6/B12/Zn/SA/Sto (Niferex Tablet) 1 Each Tablet, 150 MG PO DAILY Metoprolol Succinate (Metoprolol Succinate) 25 Mg Tab.er.24h, 12.5 MG PO DAILY, (Reported) Oxybutynin Chloride (Oxybutynin Chloride) 5 Mg Tablet, 5 MG PO DAILY, (Reported) Tizanidine HCl (Tizanidine HCl) 2 Mg Capsule, 2 MG PO QHS, (Reported) Warfarin Sodium (Jantoven) 5 Mg Tablet, 5 MG PO DAILY@17 Scheduled PRN Acetaminophen (Acetaminophen) 325 Mg Tablet, 650 MG PO Q6HP PRN for PAIN LEVEL 1-4 Tramadol HCl (Tramadol HCl) 50 Mg Tablet, 50 MG PO Q6HP PRN for MODERATE PAIN (PS 5-7) Allergies Coded Allergies: TAPE (Verified Allergy, Intermediate, rash, 04/10/20) prefers paper tape if possible LEONOR MCCRARY MD Apr 23, 2020 08:32
[2020-04-23 08:43] VITALS: BP 107/64
[2020-04-23] MEDS: METOPROLOL SUCC *XL* 12.5MG PER 1/2 TAB (TopROL *XL*) PO SCH (08:43)
[2020-04-23] MEDS: IRON POLYSAC (NIFEREX) 150 MG CAP PO SCH (08:43)
[2020-04-23] MEDS: CYANOCOBALAMIN 500 MCG TAB PO SCH (08:43)
[2020-04-23] MEDS: oxyBUTYnin 5 MG TAB PO SCH (08:43)
[2020-04-23] MEDS: ENOXAPARIN 60MG/0.6ML SYRINGE (J1650 PER 10MG) SC SCH (10:20)
[2020-04-23] MEDS ORDERED: IRON65TA2 PO (10:53)
[2020-04-23 11:08] LABS: VITAMIN B12 LEVEL 944 PG/ML
[2020-04-23 11:09] LABS: FOLATE 21.4 NG/ML
== END 2020-04-23 12:05 | disposition home or self-care (01) | DRG 582 ==
LOC: M SDC 06:35 → M MS5PR 14:45 → M SDC 04-18 06:35 → M MS5PR 04-18 06:36
PROVIDERS: ADMIT Surgery; ATTEND Surgery
PROC: 07T60ZZ Resection of Left Axillary Lymphatic, Open Approach (ICD-10-PCS; 2020-04-17)
PROC: 0HTU0ZZ Resection of Left Breast, Open Approach (ICD-10-PCS; principal; 2020-04-17 10:00)
DX: C50.912 Malignant neoplasm of unspecified site of left female breast (principal); L76.32 Postprocedural hematoma of skin and subcutaneous tissue following other procedure; E78.5 Hyperlipidemia, unspecified; I48.91 Unspecified atrial fibrillation; Z79.01 Long term (current) use of anticoagulants; M79.7 Fibromyalgia; G47.33 Obstructive sleep apnea (adult) (pediatric); F32.9 Major depressive disorder, single episode, unspecified; J45.909 Unspecified asthma, uncomplicated; M81.0 Age-related osteoporosis without current pathological fracture; Z87.891 Personal history of nicotine dependence; Z79.899 Other long term (current) drug therapy; I10 Essential (primary) hypertension

== ENCOUNTER → 2020-04-25 | Outpatient (CLI) | payer MEDICARE, BC ==
[~2020-04-25] MED LIST changes: +ACET1TAB55 PO; +ENOX80IN3 SC; +FOLI0.4T PO; +IRON65TA2 PO; +JANT5TAB PO; -LIDOCAINE 1% MDV 20ML VIAL SQ PRN; +LOVE0.4I2 SC; -LR 1,000 ML IV ONE; +NIFE15CA PO; +TRAM50TA2 PO; +VITA500T40 PO; -ceFAZolin SOD 2 GM in IV 1 EA IV ONE
[2020-04-25 14:13] LABS: INR 1.07; PROTHROMBIN TIME 14.1 SECONDS (12.5-14.3)
== END ==
LOC: M PLALAB 09:50
PROVIDERS: ATTEND Surgery
DX: Z79.01 Long term (current) use of anticoagulants (principal)

== ENCOUNTER → 2020-04-30 | Outpatient (REF) | payer MEDICARE, BC ==
[2020-04-30 14:05] LABS: INR 1.13; PROTHROMBIN TIME 14.8 SECONDS (12.5-14.3)
== END ==
LOC: M PLALAB 09:54
PROVIDERS: ATTEND Surgery
DX: Z79.01 Long term (current) use of anticoagulants (principal)

== ENCOUNTER 2020-05-01 00:17 | Emergency (ER) | payer MEDICARE, BC ==
[~2020-05-01] VITALS: Ht 162.6 cm; Wt 60.0 kg
[2020-05-01 00:20] VITALS: BP 134/74
[2020-05-01] MEDS ORDERED: SILVER NITRATE APPLICATOR TOP ONE (00:30)
--- NOTE | 2020-05-01 00:43 | ED PDOC ---
Post-Departure Follow-Up PATIENT SEEN BY HER ATTENDING SURGEON, DR CHAVES. NO ED PROVIDER INVOLVED I N HER CARE JOSÉ MIGUEL KELLER, DO May 01, 2020 00:43
--- NOTE | 2020-05-01 00:59 | CR.PDOC ---
Plastic Surgery Consultation Date of Consultation 05/01/20 History and Physical CONSULT REPORT FOR: bleeding from left chest wall HISTORY OF PRESENT ILLNESS: 74 y o lady on anticoagulation, with recent dx of L breast ca, treated with L mastectomy and L SLNBx on 04/17/20, seen in the office earlier today for drain removal. Patient called today to report that she is bleeding from the left chest wall. She was instructed to hold pressure for 20 minutes over the site of bleeding. I called her back after 20 minutes and she reported that the bleeding still persists. She reports that she soaked through a few paper towels. At this point patient was instructed to come to ED for evaluation. PAST MEDICAL HISTORY: 1. a fib L breast ca R breast ca PAST SURGICAL HISTORY: INCLUDES: 1. L mastectomy w SLNBx 04/17/20 Hx R mastectomy ALLERGIES: Please see below. FAMILY HISTORY: see chart HOME MEDICATIONS: Please see below. REVIEW OF SYSTEMS: GENERAL: bleeding from drain site CARDIOVASCULAR: afib on anticoagulation MUSCULOSKELETAL: ecchymosis stable SKIN: ecchymosis stable NEUROLOGIC: denies neuro sx HEMATOLOGY/ONCOLOGY: on blood thinners. PULMONARY: no cough INFECTIOUS: no infection PHYSICAL EXAMINATION: VITALS SIGNS: stable. GENERAL APPEARANCE:Patient seen, awake, alert, and oriented. Comfortable, in no acute distress SKIN: extensive ecchymosis stable BREAST: left chest mastectomy site without infection, extensive ecchymosis, stable, no bleeding from the drain site at this time. There is mild serosanguinous drainage upon expression. dry gauze placed over LUNGS: breathing comfortably on room air HEART: afib ABDOMEN: Abdomen is soft, EXTREMITIES: ambulates spontaneously LABORATORY DATA: Please see below. IMAGING STUDIES: none IMPRESSION: 74 y o F with Afib, on anicoagulation, w L breast Ca tx w L mastectomy and L SLNbx, s/p drain removal 04/30/20, now presenting with bleeding from the drain site - vitals reviewed, stable PLANS: - no need for labs - bleeding spontaneously stopped, no need for acute intervention - I reassured patient that this was likely a serosanguinous fluid which will stop draining soon as the drain track closed - continue anticoagulation - f/u in clinic on 05/11, sooner if needed - case discussed with ER staff - stable for d/c home Vital Signs Vital Signs Date Time Temp Pulse Resp B/P (MAP) Pulse Ox O2 Delivery O2 Flow Rate FiO2 05/01/20 00:20 97.1 71 16 134/74 (94) 96 Room Air Home Medications Scheduled Albuterol Sulfate (Proair Hfa) 8.5 Gm Hfa.aer.ad, 2 PUFF INH PRN, (Reported) Budesonide/Formoterol (Symbicort 160-4.5 Mcg Inhaler) 6 Gm Hfa.aer.ad, 2 PUFF INH BID, (Reported) Cyanocobalamin (Vitamin B-12) (Vitamin B-12) 500 Mcg Tablet, 500 MCG PO DAILY Duloxetine Hcl (Duloxetine HCl) 60 Mg Capsule.dr, 60 MG PO QHS, (Reported) Enoxaparin Sodium (Lovenox) 60 Mg/0.6 Ml Syringe, 60 MG SC Q12H Ferrous Sulfate (Iron) 325 Mg Tablet, 1 TAB PO DAILY Folic Acid (Folic Acid) 0.4 Mg Tablet, 1 TAB PO DAILY Gabapentin (Gabapentin) 600 Mg Tablet, 600 MG PO Q8H, (Reported) Metoprolol Succinate (Metoprolol Succinate) 25 Mg Tab.er.24h, 12.5 MG PO DAILY, (Reported) Oxybutynin Chloride (Oxybutynin Chloride) 5 Mg Tablet, 5 MG PO DAILY, (Reported) Tizanidine HCl (Tizanidine HCl) 2 Mg Capsule, 2 MG PO QHS, (Reported) Warfarin Sodium (Jantoven) 5 Mg Tablet, 5 MG PO DAILY@17 Scheduled PRN Acetaminophen (Acetaminophen) 325 Mg Tablet, 650 MG PO Q6HP PRN for PAIN LEVEL 1-4 Tramadol HCl (Tramadol HCl) 50 Mg Tablet, 50 MG PO Q6HP PRN for MODERATE PAIN (PS 5-7) Allergies Coded Allergies: TAPE (Verified Allergy, Intermediate, rash, 04/10/20) prefers paper tape if possible VAUGHN CHAVES DO May 01, 2020 00:59
== END 2020-05-01 01:18 | disposition home or self-care (01) ==
LOC: M ED 00:17
DX: L76.82 Other postprocedural complications of skin and subcutaneous tissue (principal); C50.912 Malignant neoplasm of unspecified site of left female breast; C50.911 Malignant neoplasm of unspecified site of right female breast; I48.91 Unspecified atrial fibrillation; Z79.01 Long term (current) use of anticoagulants; Z79.899 Other long term (current) drug therapy; Z79.51 Long term (current) use of inhaled steroids

== ENCOUNTER → 2020-11-13 | Outpatient (REF) | payer MEDICARE, BC ==
[~2020-11-13] MED LIST changes: +ANAS1TAB2 PO; +COVI2.5V IM; -FOLI0.4T PO; +FOLI0.4T5 PO; +HYDR-3719 PO
[2020-11-13 17:08] LABS: CHOLESTEROL RISK RATIO 2.657 (<5)
[2020-11-13 17:43] LABS: HEMOGLOBIN A1c 5.4 %
== END ==
LOC: M SFHCCLAY 10:15
PROVIDERS: ATTEND Family Medicine
DX: E78.2 Mixed hyperlipidemia (principal); R73.03 Prediabetes; M81.0 Age-related osteoporosis without current pathological fracture
CPT/HCPCS: 80061; 83036; 96372; G0442; G0444; J0897

== ENCOUNTER → 2021-02-19 | Outpatient (CLI) | payer MEDICARE, BC ==
[~2021-02-19] MED LIST changes: +THERTAB52 PO; +TURM500C3 PO
--- NOTE | 2021-02-19 14:51 | REP ---
INDICATION: SOB COMPARISON: 11/01/2015. CT 12/21/2019. TECHNIQUE: PA/Lateral FINDINGS: Lungs: Clear, no infiltrate. There is minor bibasilar fibrotic change. Heart: Normal in size. Mediastinum: Mediastinal silhouette unremarkable. Pleural angles: Unremarkable.. Bones and soft tissues: Dhillon rods and screws are seen throughout the thoracic spine. Multiple sternal wires and mediastinal clips are present. Spinal alignment is unchanged. Old left rib fractures are again noted. IMPRESSION: No acute pulmonary disease. <Electronically signed by Kam Richter > 02/19/21 1538
== END ==
LOC: M RAD 14:06
PROVIDERS: ATTEND Nurse Practitioner Adult Health
DX: R06.02 Shortness of breath (principal)

== ENCOUNTER → 2021-03-07 | Outpatient (CLI) | payer MEDICARE, BC ==
--- NOTE | 2021-03-07 15:20 | PFTRPT ---
Site: [facility], [address] [place] [address], [id number] ID: [id number] Name: ROSAURA ALBARADO Visit Date: 03/07/2021 Second ID: [id number] Referring Doctor: Rose Beltran Reviewing Doctor: Som Cabral MD Editorial Assistant: Mary Alice BLANCO RRT Age: 75 : 1945 Sex: Female Race: Height: 65.00 Inches Weight: 143.00 Lbs BSA: 1.72 Order IDs: [id number] Requested Test(s): <RESP-PFT.PFT B/A> Diagnosis: J45.30 test appear to be valid, although the ATS standard for "end of test" was not met. Pt was given four puffs of albuterol for post bronchodilator. Review Status: Not Reviewed Pre-Bronch Post-Bronch Pred Actual %Pred Actual %Chng SPIROMETRY FVC (L) 2.91 2.78 95 2.80 FEV1 (L) 2.19 2.10 95 2.13 1 FEV1/FVC (%) 75 75 100 76 1 FEF 25% (L/sec) 4.71 5.19 110 4.96 -4 FEF 50% (L/sec) 3.18 2.16 67 2.30 6 FEF 75% (L/sec) 0.85 0.52 60 0.55 7 FEF 25-75% (L/sec) 1.69 1.63 96 1.77 8 FEF Max (L/sec) 5.35 5.95 111 5.97 FIVC (L) 2.57 2.76 7 FIF 50% (L/sec) 3.11 5.36 172 4.07 -24 FIF Max (L/sec) 5.40 4.08 -24 MVV (L/min) 85 78 91 Expiratory Time (sec) 5.25 6.40 21 Back Extrap Vol (L) 0.09 0.08 -13 Time To FEFmax (sec) 0.087 0.073 -15 LUNG VOLUMES SVC (L) 2.85 2.85 100 IC (L) 2.20 1.75 79 ERV (L) 0.65 1.10 169 TGV (L) 3.00 3.51 116 RV (Pleth) (L) 2.35 2.41 102 TLC (Pleth) (L) 5.20 5.26 101 RV/TLC (Pleth) (%) 46 46 99 DIFFUSION DLCOunc (ml/min/mmHg) 20.31 15.23 75 DLCOcor (ml/min/mmHg) 20.31 15.43 75 DL/VA (ml/min/mmHg/L) 3.91 3.44 87 VA (L) 5.20 4.49 86 BHT (sec) 10.14 IVC (L) 2.68 TLC (SB) (L) 4.64 AIRWAYS RESISTANCE Raw (cmH2O/L/s) 1.86 0.79 42 Gaw (L/s/cmH2O) 1.03 1.30 126 sRaw (cmH2O*s) 4.76 2.69 56 sGaw (1/cmH2O*s) 0.20 0.38 191 BLOOD GASES Hgb (gm/dL) 13.0
== END ==
LOC: M CARPUL 14:35
PROVIDERS: ATTEND Nurse Practitioner Adult Health
DX: J45.30 Mild persistent asthma, uncomplicated (principal); R06.02 Shortness of breath

== ENCOUNTER → 2022-09-18 | Outpatient (CLI) | payer MEDICARE, BC ==
[~2022-09-18] MED LIST changes: +BUPR150T12; +ECOT81TA5 PO; +OCUVCAP PO; +OSTE1TAB2 PO; +PRESCAP PO
== END ==
LOC: M RAD 12:46
PROVIDERS: ATTEND Nurse Practitioner
DX: C50.919 Malignant neoplasm of unspecified site of unspecified female breast (principal)

== ENCOUNTER → 2023-04-28 | Outpatient (CLI) | payer MEDICARE, BC ==
[~2023-04-28] MED LIST changes: +ISOVUE-370 76% 100ML VIAL ONE; -OXYB5TAB10 PO; +OXYB5TAB11 PO
== END ==
LOC: M PLAIMG 12:28
PROVIDERS: ATTEND Nurse Practitioner
DX: C50.912 Malignant neoplasm of unspecified site of left female breast (principal); R06.02 Shortness of breath; Z79.811 Long term (current) use of aromatase inhibitors
CPT/HCPCS: 71260; 77080; Q9967

== ENCOUNTER → 2023-04-28 | Outpatient (CLI) | payer MEDICARE, BC ==
[~2023-04-28] MED LIST changes: -ISOVUE-370 76% 100ML VIAL ONE
== END ==
LOC: M WHC 12:25
PROVIDERS: ATTEND Nurse Practitioner
DX: C50.912 Malignant neoplasm of unspecified site of left female breast (principal); Z79.811 Long term (current) use of aromatase inhibitors